=== PATIENT | male | born 1940 | race Caucasian/White ===

== ENCOUNTER 2017-06-21 16:29 | Inpatient (IN) | payer MEDICARE, OTHER ==
--- NOTE | 2017-06-21 16:35 | ED Physician Chart ---
ED Chief Complaint/HPI - Patient Information Date Seen:: 06/21/17 Time Seen:: 16:30 Chief Complaint:: Agitation History of Present Illness:: onset x one day of agitation, confusion, aggression, and combative behavior; no SIs, H/As, neck pain, C/P, SOB, Abd. pain, cough, A/N/V/D/c, fever, chills, or urinary s/s Allergies:: Allergies Allergy/AdvReac Type Severity Reaction Status Date / Time No Known Allergies Allergy Verified 05/03/16 15:51 Historian:: Patient, EMS Review:: Nurse's Note Reviewed, Old Chart Reviewed, EMS run form Reviewed, Transfer documents Reviewed ED Review of Systems - Review of Systems General/Constitutional: No fever, No chills, No weight loss, No weakness, No diaphoresis, No edema, No loss of appetite Skin: No skin lesions, No rash, No bruising Head: No headache, No light-headedness Eyes: No loss of vision, No pain, No diplopia ENT: No earache, No nasal drainage, No sore throat, No tinnitus Neck: No neck pain, No swelling, No thyromegaly, No stiffness, No mass noted Cardio Vascular: No chest pain, No palpitations, No PND, No orthopnea, No edema Pulmonary: No SOB, No cough, No sputum, No wheezing GI: No nausea, No vomiting, No diarrhea, No pain, No melena, No hematochezia, No constipation, No hematemesis G/U: No dysuria, No frequency, No hematuria Musculoskeletal: No bone or joint pain, No back pain, No muscle pain Endocrine: No polyuria, No polydipsia Psychiatric: Prior psych history, Depression, Anxiety, No suicidal ideation, No homicidal ideation, Auditory hallucination, No visual hallucination Hematopoietic: No bruising, No lymphadenopathy Allergic/Immuno: No urticaria, No angioedema Neurological: No syncope, No focal symptoms, No weakness, No paresthesia, No headache, No seizure, No dizziness, No confusion, No vertigo ED Past Medical History - Past Medical History Obtainable: Yes Past Medical History: HTN, DM, CAD, CVA/TIA, Seizures, Dementia Family History: Heart disease, Diabetes Melitus, HTN Social History: Non Smoker, No Alcohol, No Drug Use, Single, Care Facility Surgical History: None Psychiatricy History: Depression, Schizophrenia, Bipolar, Dementia Medication: Reviewed Family Medical History - Family Member family History Unknown: Yes Ethnicity: Unknown Living Status: Unknown Hx Family Cancer: (unknown) Hx Family Coronary Artery Disease: (unknown) Hx Family Congestive Heart Failure: (unknown) Hx Family Hypertension: (unknown) Hx Family Stroke: (unknown) Hx Family Diabetes: (unknown) Hx Family Seizures: (unknown) Hx Family Dementia: (unknown) Hx Family AIDS: (unknown) Hx Family COPD: (unknown) Hx Family Hepatitis: (unknown) Hx Family Psychiatric Problems: (unknown) Hx Family Tuberculosis: (unknown) ED Physical Exam - Physical Examination General/Constitutional: Awake, Well-developed, well-nourished, Alert, No distress, GCS 15, Non-toxic appearing, Ambulatory Head: Atraumatic Eyes: Lids, conjuctiva normal, PERRL, EOMI Skin: Nl inspection, No rash, No skin lesions, No ecchymosis, Well hydrated, No lymphadenopathy ENMT: External ears, nose nl, Nasal exam nl, Lips, teeth, gums nl Neck: Nontender, Full ROM w/o pain, No JVD, No nuchal rigidity, No bruit, No mass, No stridor Respiratory: Nl effort/Exclusion, Clear to Auscultation, No Wheeze/Rhonchi/Rales Cardio Vascular: RRR, No murmur, gallop, rubs, NL S1 S2 GI: No tenderness/rebounding/guarding, No organomegaly, No hernia, Normal BS's, Nondistended, No mass/bruits, No McBurney tenderness : No CVA tenderness Extremities: No tenderness or effusion, Full ROM, normal strength in all extremities, No edema, Normal digits & nails Neuro/Psych: DTR's symmetric, Normal sensory exam, Normal motor strength, Normal gait, No focal deficits Other Neuro/Psych comments:: + Psychomotor Agitation; Mood/Affect: Labile; Confused and Disoriented; no SIs Misc: Normal back, No paraspinal tenderness ED Labs/Radiology/EKG Results - Lab Results Comments:: unremarkable ED Septic Shock - . Is Septic Shock (SBP<90, OR Lactate>4 mmol\L) present?: No ED Reassessment (Disposition) - Reassessment Reassessment Condition:: Improved - Diagnosis Diagnosis:: Dx: Agitation; Manic-Depression; BiPolar Disorder - Aftercare/Follow up Instructions Aftercare/Follow-Up Instructions:: Counseled pt regarding lab results/diagnosis & need follow up, Counseled pt & family regarding lab results/diagnosis & need follow up - Patient Disposition Discharge/Transfer:: Acute Care w/in this hosp Admitted to:: [facility] Condition at Disposition:: Stable, Improved
[2017-06-21 17:05] LABS: % BASOPHILS 0.6 % (0.0-2.0); % LYMPHOCYTES 26.7 % (20.0-50.0); % NEUTROPHILS 59.7 % (40.0-80.0); HEMATOCRIT 41.7 % (41.0-60); MEAN CELL VOLUME 87.2 fl (80-99); MEAN CORPUSCULAR HEMOGLOBIN 29.2 pg (27.0-31.0); MEAN CORPUSCULAR HGB CONC 33.5 pg (28.0-36.0); RED BLOOD COUNT 4.78 Mil/cmm (3.80-5.80); RED CELL DISTRIBUTION WIDTH 13.4 % (11.5-20.0)
[2017-06-21 17:24] LABS: ACETAMINOPHEN < 10.0 ug/mL (10.0-30.0); ALB/GLOB RATIO 1.8 (1.0-1.8); ALKALINE PHOSPHATASE 119 U/L (34-104); ANION GAP 9.6 (7.0-16.0); BILIRUBIN,TOTAL 0.2 mg/dL (0.3-1.0); BUN - UREA NITROGEN 19 mg/dL (7-25); BUN/CREATININE RATIO 27.1; CARBON DIOXIDE 25.9 mEq/L (21.0-31.0); CHLORIDE 101 mEq/L (98-107); CHOLESTEROL 185 mg/dL (<200); CREATININE - SERUM 0.7 mg/dL (0.7-1.3); GLUCOSE 187 mg/dL (70-105); POTASSIUM SERUM 4.5 mEq/L (3.5-5.1); SGOT 12 U/L (13-39); SGPT/ALT 13 U/L (7-52); SODIUM SERUM 132 mEq/L (136-145); TRIGLYCERIDES 110 mg/dL (<150)
[2017-06-21 17:30] LABS: PLATELET COUNT 208 Th/cmm (150-400); WHITE BLOOD COUNT 8.6 Th/cmm (4.8-10.8)
[2017-06-21 19:28] LABS: URINE BILIRUBIN NEGATIVE (NEGATIVE); URINE BLOOD NEGATIVE (NEGATIVE); URINE GLUCOSE (UA) NEGATIVE (NEGATIVE); URINE KETONE NEGATIVE (NEGATIVE); URINE PROTEIN NEGATIVE (NEGATIVE); URINE UROBILINOGEN 0.2 E.U./dL (0.2 - 1.0)
[2017-06-21 19:36] LABS: AMPHETAMINE URINE NEGATIVE (NEGATIVE); BARBITURATES URINE POSITIVE (NEGATIVE); METHADONE URINE NEGATIVE (NEGATIVE)
[2017-06-21 19:55] LABS: URINE COLOR YELLOW
[2017-06-21 19:56] LABS: URINE BACTERIA NONE SEEN /hpf (NONE SEEN); URINE EPITHELIAL CELLS NONE SEEN /lpf (FEW); URINE RBC NONE SEEN /hpf (0-5); URINE WBC NONE SEEN /hpf (0-5)
[2017-06-21 22:07] VITALS: BP 125/66
--- NOTE | 2017-06-23 05:37 | Psychosocial Evaluation ---
DATE OF SERVICE: 06/21/2017 IDENTIFYING DATA: The patient is a 76-year-old male resident of [facility] in [place]. Information obtained by directly interviewing the patient as well as reviewing the admission papers ____ hospitalization: The patient is admitted because of his agitated and assaultive behavior. CHIEF COMPLAINT: "I cannot see. Something is going and poor." HISTORY OF PRESENT ILLNESS: This is one of multiple psychiatric hospitalizations for this patient who was under my care last year. The patient at this time is reported to have been getting easily agitated and the patient is not able to contract for safety and hence patient has to be admitted over here for stabilization. Prior to the hospitalization, the patient's sleep is noted to be poor. Appetite is also noted to very poor. The patient is stating that he has been having problem with his eye. The patient during the interview with a Slovak speaking child care supervisor has been responding actively to internal stimuli. Possibly having visual hallucinations. PAST PSYCHIATRIC HISTORY: Please refer to the above. MEDICAL HISTORY: Physical examination is requested to be done by Dr. Li. SUBSTANCE ABUSE HISTORY: None. PHYSICAL OR SEXUAL ABUSE HISTORY: None. LEGAL PROBLEMS: None at this time. MENTAL STATUS EXAMINATION: The patient is a 76-year-old, thin built, looking his stated age, superficially cooperative. Eye contact is poor. Mood is noted to be irritable. Affect is constricted. Insight and judgment at this time are noted to be still impaired. Impulse control seems to be poor. Coping skills are also poor. The patient has been having difficult time to cope with the stress. The patient is still actively responding to internal stimuli. The patient is frustrated at this time. DIAGNOSTIC IMPRESSION: 1. Psychosis, not otherwise specified. 2. Dementia and behavioral change, secondary ____. IMMEDIATE TREATMENT PLAN: The patient is going to be observed in inpatient unit, provided with supportive psychotherapy. The patient is going to be started on low dose of Seroquel and the patient is going to be closely monitored. ESTIMATED LENGTH OF STAY: 5-7 days. DISCHARGE CRITERIA: When he is no longer a threat to self or others and be able to cope up with the stress. JOB# [id number]
[2017-06-23] MEDS ORDERED: Maalox 30 mL Cup PO PRN (09:05)
--- NOTE | 2017-06-23 09:05 | History and Physical ---
History of Present Illness - HPI Chief Complaint: Increased in agitation HPI: Patient is a permanent resident of a SNF and became agitated. Vital Signs: Last Vital Signs Temp 98.3 F 06/23/17 06:51 Pulse 74 06/23/17 06:51 Resp 20 06/23/17 06:51 BP 110/69 06/23/17 06:51 Pulse Ox 97 06/23/17 06:51 Past Medical History Cardiovascular: Report: CAD, CHF, HTN Pulmonary: Report: No Pertinent Hx SOCIAL SCIENCES INSTRUCTOR: Report: CVA, Dementia GI: Report: No Pertinent Hx Psych: Report: Psychosis, Schizophrenia Musculoskeletal: Report: No Pertinent Hx Rheumatologic: Report: No pertinent Hx Infectious Disease: Report: No Pertinent Hx Renal/: Report: No Pertinent Hx Endocrine: Report: Diabetes Dermatology: Report: No Pertinent Hx - Past Surgical History Past Surgical History: No pertinent Hx Family Medical History - Family Member family History Unknown: Yes Ethnicity: Unknown Living Status: Unknown Hx Family Cancer: (unknown) Hx Family Coronary Artery Disease: (unknown) Hx Family Congestive Heart Failure: (unknown) Hx Family Hypertension: (unknown) Hx Family Stroke: (unknown) Hx Family Diabetes: (unknown) Hx Family Seizures: (unknown) Hx Family Dementia: (unknown) Hx Family AIDS: (unknown) Hx Family HIV: No Hx Family COPD: (unknown) Hx Family Hepatitis: (unknown) Hx Family Psychiatric Problems: (unknown) Hx Family Tuberculosis: (unknown) Social History Smoke: No Alcohol: None Drugs: None Lives: Retirement Domestic Violence: Negative - Medications Home Medications: Home Medication Medication Instructions Recorded Type Acetaminophen [Tylenol] 650 mg PO Q4HR PRN #0 tab 05/13/16 Rx Al Hyd/Mg Hyd/Simethicone [Maalox] 30 ml PO Q4HR PRN #0 udc 05/13/16 Rx Aspirin [Aspirin Chewable] 81 mg PO DAILY #0 ctb 05/13/16 Rx Benazepril [Lotensin] 20 mg PO DAILY #0 tab 05/13/16 Rx Cholecalciferol (Vit D3) [Vitamin 2,000 iu PO DAILY #0 tab 05/13/16 Rx D3] Docusate Sodium [Colace] 100 mg PO DAILY #0 cap 05/13/16 Rx Insulin Aspart Sliding Scale 0 units SUBQ ACHS #0 unit 05/13/16 Rx [NovoLOG INSULIN SLIDING SCALE] Multivitamin [Theragran] 1 tab PO DAILY #0 tab 05/13/16 Rx Phenytoin [Dilantin*] 300 mg PO HS #0 cer 05/13/16 Rx Tamsulosin [Flomax] 0.4 mg PO DAILY #0 cap 05/13/16 Rx metFORMIN [Glucophage] 500 mg PO TID 06/21/17 History - Allergies Allergies/Adverse Reactions: Allergies Allergy/AdvReac Type Severity Reaction Status Date / Time No Known Allergies Allergy Verified 05/03/16 15:51 Review of Systems - Review of Systems Constitutional: Report: No Significant Eyes: Report: No Significant ENT: Report: No Significant Respiratory: Report: No Significant Cardiovascular: Report: No Significant Gastrointestinal: Report: No Significant Genitourinary: Report: No Significant Musculoskeletal: Report: No Significant Skin: Report: No Significant Neurological: Report: Weakness Physical Exam - Physical Exam HEENT: Report: Ears Nose Throat within normal limits Neck: Report: Within normal limits Cardiovascular Systems: Report: Regular, Rate and Rhythm Respiratory: Report: Breath Sounds are within normal limits Abdomen: Report: Non-tender to palpation Back: Report: Inspection of back is within normal limits. Extremities: Report: Non-tender to palpation. Skin: Report: Color of skin is within normal limits Neuro/Psych: Report: Disoriented to name time or place - Lab Results All Lab Results last 24 hours: Laboratory Last Values WBC 8.6 Th/cmm (4.8-10.8) D 06/21/17 16:58 RBC 4.78 Mil/cmm (3.80-5.80) 06/21/17 16:58 Hgb 14.0 gm/dL (12-16) 06/21/17 16:58 Hct 41.7 % (41.0-60) 06/21/17 16:58 MCV 87.2 fl (80-99) 06/21/17 16:58 MCH 29.2 pg (27.0-31.0) 06/21/17 16:58 MCHC Differential 33.5 pg (28.0-36.0) 06/21/17 16:58 RDW 13.4 % (11.5-20.0) 06/21/17 16:58 Plt Count 208 Th/cmm (150-400) D 06/21/17 16:58 MPV 8.0 fl 06/21/17 16:58 Neutrophils % 59.7 % (40.0-80.0) 06/21/17 16:58 Lymphocytes % 26.7 % (20.0-50.0) 06/21/17 16:58 Monocytes % 10.0 % (2.0-10.0) 06/21/17 16:58 Eosinophils % 3.0 % (0.0-5.0) 06/21/17 16:58 Basophils % 0.6 % (0.0-2.0) 06/21/17 16:58 Sodium 132 mEq/L (136-145) L 06/21/17 16:58 Potassium 4.5 mEq/L (3.5-5.1) 06/21/17 16:58 Chloride 101 mEq/L (98-107) 06/21/17 16:58 Carbon Dioxide 25.9 mEq/L (21.0-31.0) 06/21/17 16:58 Anion Gap 9.6 (7.0-16.0) 06/21/17 16:58 BUN 19 mg/dL (7-25) 06/21/17 16:58 Creatinine 0.7 mg/dL (0.7-1.3) 06/21/17 16:58 Est GFR ( Amer) TNP 06/21/17 16:58 Est GFR (Non-Af Amer) TNP 06/21/17 16:58 BUN/Creatinine Ratio 27.1 06/21/17 16:58 Glucose 187 mg/dL (70-105) H 06/21/17 16:58 POC Glucose 90 MG/DL (70 - 105) 06/23/17 06:49 Hemoglobin A1c % 6.1 % (4.0-6.0) H 06/21/17 16:44 Calcium 9.0 mg/dL (8.6-10.3) 06/21/17 16:58 Total Bilirubin 0.2 mg/dL (0.3-1.0) L 06/21/17 16:58 AST 12 U/L (13-39) L 06/21/17 16:58 ALT 13 U/L (7-52) 06/21/17 16:58 Alkaline Phosphatase 119 U/L (34-104) H 06/21/17 16:58 Total Protein 5.9 gm/dL (6.0-8.3) L 06/21/17 16:58 Albumin 3.8 gm/dL (4.2-5.5) L 06/21/17 16:58 Globulin 2.1 gm/dL 06/21/17 16:58 Albumin/Globulin Ratio 1.8 (1.0-1.8) 06/21/17 16:58 Triglycerides 110 mg/dL (<150) 06/21/17 16:58 Cholesterol 185 mg/dL (<200) 06/21/17 16:58 LDL Cholesterol Direct 123 mg/dL (75-193) 06/21/17 16:58 HDL Cholesterol 48 mg/dL (23-92) 06/21/17 16:58 TSH 1.45 uIU/ml (0.34-5.60) 06/21/17 16:58 Urine Source CLEAN C 06/21/17 18:50 Urine Color YELLOW 06/21/17 18:50 Urine Clarity CLEAR (CLEAR) 06/21/17 18:50 Urine pH 6.0 (4.6 - 8.0) 06/21/17 18:50 Ur Specific [place] 1.010 (1.005-1.030) 06/21/17 18:50 Urine Protein NEGATIVE mg/dL (NEGATIVE) 06/21/17 18:50 Urine Glucose (UA) NEGATIVE mg/dL (NEGATIVE) 06/21/17 18:50 Urine Ketones NEGATIVE mg/dL (NEGATIVE) 06/21/17 18:50 Urine Blood NEGATIVE (NEGATIVE) 06/21/17 18:50 Urine Nitrate NEGATIVE (NEGATIVE) 06/21/17 18:50 Urine Bilirubin NEGATIVE (NEGATIVE) 06/21/17 18:50 Urine Urobilinogen 0.2 E.U./dL (0.2 - 1.0) 06/21/17 18:50 Ur Leukocyte Esterase NEGATIVE (NEGATIVE) 06/21/17 18:50 Urine RBC NONE SEEN /hpf (0-5) 06/21/17 18:50 Urine WBC NONE SEEN /hpf (0-5) 06/21/17 18:50 Ur Epithelial Cells NONE SEEN /lpf (FEW) 06/21/17 18:50 Urine Bacteria NONE SEEN /hpf (NONE SEEN) 06/21/17 18:50 Salicylates < 25.0 mg/L (30.0-100.0) L 06/21/17 16:58 Urine Opiates Screen NEGATIVE (NEGATIVE) 06/21/17 18:50 Urine Methadone Screen NEGATIVE (NEGATIVE) 06/21/17 18:50 Acetaminophen < 10.0 ug/mL (10.0-30.0) L 06/21/17 16:58 Ur Barbiturates Screen POSITIVE (NEGATIVE) H 06/21/17 18:50 Ur Tricyclics Screen NEGATIVE (NEGATIVE) 06/21/17 18:50 Ur Phencyclidine Scrn NEGATIVE (NEGATIVE) 06/21/17 18:50 Amphetamines Screen NEGATIVE (NEGATIVE) 06/21/17 18:50 U Methamphetamines Scrn NEGATIVE (NEGATIVE) 06/21/17 18:50 U Benzodiazepines Scrn NEGATIVE (NEGATIVE) 06/21/17 18:50 U Cocaine Metab Screen NEGATIVE (NEGATIVE) 06/21/17 18:50 U Cannabinoids Screen NEGATIVE (NEGATIVE) 06/21/17 18:50 Ethyl Alcohol < 10 mg/dL (0-10) 06/21/17 16:58 Laboratory Results - last 24 hr 06/22/17 06/23/17 20:24 06:49 POC Glucose 184 H 90 - Assessment Assessment: Patient is awake, calm in no acute distress. DX: Increased in agitation, Dementia, Schizophrenia, DM, HTN, CAD, Seizure disorder - Plan Plan: Patient is continue with SNF medications. He is under Psychiatric care.
[2017-06-23] MEDS: Aspirin 81mg Chewable Tab PO SCH (09:22)
[2017-06-23] MEDS: INSULIN ASPART SLIDING SCALE 100 UNITS/ML UNIT SUBQ SCH ×3 (11:46→20:53)
[2017-06-24] MEDS: INSULIN ASPART SLIDING SCALE 100 UNITS/ML UNIT SUBQ SCH ×4 (06:51→22:07)
[2017-06-24] MEDS: Aspirin 81mg Chewable Tab PO SCH (08:40)
[2017-06-24] MEDS: Multivitamin Tab PO SCH (08:41)
--- NOTE | 2017-06-24 10:16 | General Progress Note ---
Subjective - Review of Systems Service Date: 06/24/17 Subjective: I am fine Objective - Results Result Diagrams: 06/21/17 16:58 06/21/17 16:58 Recent Labs: Laboratory Last Values WBC 8.6 Th/cmm (4.8-10.8) D 06/21/17 16:58 RBC 4.78 Mil/cmm (3.80-5.80) 06/21/17 16:58 Hgb 14.0 gm/dL (12-16) 06/21/17 16:58 Hct 41.7 % (41.0-60) 06/21/17 16:58 MCV 87.2 fl (80-99) 06/21/17 16:58 MCH 29.2 pg (27.0-31.0) 06/21/17 16:58 MCHC Differential 33.5 pg (28.0-36.0) 06/21/17 16:58 RDW 13.4 % (11.5-20.0) 06/21/17 16:58 Plt Count 208 Th/cmm (150-400) D 06/21/17 16:58 MPV 8.0 fl 06/21/17 16:58 Neutrophils % 59.7 % (40.0-80.0) 06/21/17 16:58 Lymphocytes % 26.7 % (20.0-50.0) 06/21/17 16:58 Monocytes % 10.0 % (2.0-10.0) 06/21/17 16:58 Eosinophils % 3.0 % (0.0-5.0) 06/21/17 16:58 Basophils % 0.6 % (0.0-2.0) 06/21/17 16:58 Sodium 132 mEq/L (136-145) L 06/21/17 16:58 Potassium 4.5 mEq/L (3.5-5.1) 06/21/17 16:58 Chloride 101 mEq/L (98-107) 06/21/17 16:58 Carbon Dioxide 25.9 mEq/L (21.0-31.0) 06/21/17 16:58 Anion Gap 9.6 (7.0-16.0) 06/21/17 16:58 BUN 19 mg/dL (7-25) 06/21/17 16:58 Creatinine 0.7 mg/dL (0.7-1.3) 06/21/17 16:58 Est GFR ( Amer) TNP 06/21/17 16:58 Est GFR (Non-Af Amer) TNP 06/21/17 16:58 BUN/Creatinine Ratio 27.1 06/21/17 16:58 Glucose 187 mg/dL (70-105) H 06/21/17 16:58 POC Glucose 85 MG/DL (70 - 105) 06/24/17 06:48 Hemoglobin A1c % 6.1 % (4.0-6.0) H 06/21/17 16:44 Calcium 9.0 mg/dL (8.6-10.3) 06/21/17 16:58 Total Bilirubin 0.2 mg/dL (0.3-1.0) L 06/21/17 16:58 AST 12 U/L (13-39) L 06/21/17 16:58 ALT 13 U/L (7-52) 06/21/17 16:58 Alkaline Phosphatase 119 U/L (34-104) H 06/21/17 16:58 Total Protein 5.9 gm/dL (6.0-8.3) L 06/21/17 16:58 Albumin 3.8 gm/dL (4.2-5.5) L 06/21/17 16:58 Globulin 2.1 gm/dL 06/21/17 16:58 Albumin/Globulin Ratio 1.8 (1.0-1.8) 06/21/17 16:58 Triglycerides 110 mg/dL (<150) 06/21/17 16:58 Cholesterol 185 mg/dL (<200) 06/21/17 16:58 LDL Cholesterol Direct 123 mg/dL (75-193) 06/21/17 16:58 HDL Cholesterol 48 mg/dL (23-92) 06/21/17 16:58 TSH 1.45 uIU/ml (0.34-5.60) 06/21/17 16:58 Urine Source CLEAN C 06/21/17 18:50 Urine Color YELLOW 06/21/17 18:50 Urine Clarity CLEAR (CLEAR) 06/21/17 18:50 Urine pH 6.0 (4.6 - 8.0) 06/21/17 18:50 Ur Specific [place] 1.010 (1.005-1.030) 06/21/17 18:50 Urine Protein NEGATIVE mg/dL (NEGATIVE) 06/21/17 18:50 Urine Glucose (UA) NEGATIVE mg/dL (NEGATIVE) 06/21/17 18:50 Urine Ketones NEGATIVE mg/dL (NEGATIVE) 06/21/17 18:50 Urine Blood NEGATIVE (NEGATIVE) 06/21/17 18:50 Urine Nitrate NEGATIVE (NEGATIVE) 06/21/17 18:50 Urine Bilirubin NEGATIVE (NEGATIVE) 06/21/17 18:50 Urine Urobilinogen 0.2 E.U./dL (0.2 - 1.0) 06/21/17 18:50 Ur Leukocyte Esterase NEGATIVE (NEGATIVE) 06/21/17 18:50 Urine RBC NONE SEEN /hpf (0-5) 06/21/17 18:50 Urine WBC NONE SEEN /hpf (0-5) 06/21/17 18:50 Ur Epithelial Cells NONE SEEN /lpf (FEW) 06/21/17 18:50 Urine Bacteria NONE SEEN /hpf (NONE SEEN) 06/21/17 18:50 Salicylates < 25.0 mg/L (30.0-100.0) L 06/21/17 16:58 Urine Opiates Screen NEGATIVE (NEGATIVE) 06/21/17 18:50 Urine Methadone Screen NEGATIVE (NEGATIVE) 06/21/17 18:50 Acetaminophen < 10.0 ug/mL (10.0-30.0) L 06/21/17 16:58 Ur Barbiturates Screen POSITIVE (NEGATIVE) H 06/21/17 18:50 Ur Tricyclics Screen NEGATIVE (NEGATIVE) 06/21/17 18:50 Ur Phencyclidine Scrn NEGATIVE (NEGATIVE) 06/21/17 18:50 Amphetamines Screen NEGATIVE (NEGATIVE) 06/21/17 18:50 U Methamphetamines Scrn NEGATIVE (NEGATIVE) 06/21/17 18:50 U Benzodiazepines Scrn NEGATIVE (NEGATIVE) 06/21/17 18:50 U Cocaine Metab Screen NEGATIVE (NEGATIVE) 06/21/17 18:50 U Cannabinoids Screen NEGATIVE (NEGATIVE) 06/21/17 18:50 Ethyl Alcohol < 10 mg/dL (0-10) 06/21/17 16:58 RPR NONREACTIVE (NONREACTIVE) 06/21/17 16:58 - Physical Exam Vitals and I&O: Vital Signs Temp 98.2 F 06/24/17 06:38 Pulse 74 06/24/17 08:40 Resp 20 06/24/17 06:38 BP 127/76 06/24/17 08:40 Pulse Ox 98 06/24/17 06:38 Intake & Output 06/23/17 06/24/17 06/24/17 18:59 06:59 18:59 Intake Total 1000 120 Balance 1000 120 Intake: Oral 1000 120 Other: # Voids 4 3 # Bowel Movements 1 Active Medications: Current Medications Acetaminophen (Tylenol) 650 mg PO Q4HR PRN PRN Reason: Pain Stop: 08/22/17 09:04 Al Hydrox/Mg Hydrox/Simethicone (Maalox) 30 ml PO Q4HR PRN PRN Reason: GI DISTRESS Stop: 08/22/17 09:04 Aspirin (Aspirin Chewable) 81 mg PO DAILY GIOVANNA Stop: 08/22/17 08:59 Last Admin: 06/24/17 08:40 Dose: 81 mg Benazepril HCl (Lotensin) 20 mg PO DAILY GIOVANNA Stop: 08/22/17 08:59 Last Admin: 06/24/17 08:40 Dose: 20 mg Cholecalciferol (Vitamin D3) 2,000 iu PO DAILY GIOVANNA Stop: 08/23/17 08:59 Last Admin: 06/24/17 08:40 Dose: 2,000 iu Docusate Sodium (Colace) 100 mg PO DAILY GIOVANNA Stop: 08/22/17 08:59 Last Admin: 06/24/17 08:41 Dose: 100 mg Insulin Aspart (Novolog Insulin Sliding Scale) 0 units SUBQ ACHS GIOVANNA PRN Reason: Protocol Stop: 08/22/17 11:29 Last Admin: 06/24/17 06:51 Dose: Not Given Metformin HCl (Glucophage) 500 mg PO TID GIOVANNA Stop: 08/21/17 13:59 Last Admin: 06/24/17 08:44 Dose: Not Given Multivitamins/Vitamin C (Theragran) 1 tab PO DAILY GIOVANNA Stop: 08/23/17 08:59 Last Admin: 06/24/17 08:41 Dose: 1 tab Phenytoin (Dilantin) 300 mg PO HS GIOVANNA Stop: 08/22/17 20:59 Last Admin: 06/23/17 21:01 Dose: 300 mg Quetiapine Fumarate (Seroquel) 12.5 mg PO HS [facility] PRN Reason: Protocol Stop: 08/21/17 20:59 Last Admin: 06/23/17 21:02 Dose: 12.5 mg Tamsulosin HCl (Flomax) 0.4 mg PO DAILY [facility] Stop: 08/22/17 09:14 Last Admin: 06/24/17 08:41 Dose: 0.4 mg General: Alert, Cooperative, Other (Confused) HEENT: Atraumatic Neck: Supple Cardiovascular: Regular rate Lungs: Clear to auscultation Abdomen: Bowel sounds Extremities: Other (No edema) Neurological: Other (Unstable gait) Skin: Other (Warm and dry) Psych/Mental Status: Other (Awake, alert, confused) - Procedures Procedures: Procedures Procedure Code Date OTHER GROUP THERAPY 94.44 05/02/11 RECREATIONAL THERAPY 93.81 05/02/11 Assessment/Plan - Assessment Assessment: Patient is awake, calm in no acute distress. DX: Increased in agitation, Dementia, Schizophrenia, DM, HTN, CAD, Seizure disorder. - Plan Plan: Patient is continue with SNF medications. He is under Psychiatric care. Nutritional Asmnt/Malnutr-PDOC - Dietary Evaluation Malnutrition Findings (Please click <Entered> for more info): Nutritional Asmnt/Malnutrition Start: 06/22/17 16: 44 Text: Status: Complete Freq: Document 06/22/17 16:44 GSUN (Rec: 06/22/17 17:04 [id number] [id number]) Nutritional Asmnt/Malnutrition Patient General Information Nutritional Screening Consult Diagnosis Reason for visit: psychosis NOS Pertinent Medical Hx/Surgical Hx ER report: HTN, DM, CAD, CVA/ TIA, seizures, dementia, depression, schizophrenia, bipolar Subjective Information [address] consult for poor PO intake. Visited pt during meal time, pt seen in chair in rec room, had already finished dinner. Per RN notes , pt finished 100% dinner . Spoke to SHUTTLELESS LOOM WEAVER, SHUTTLE[employer]ESS LO[employer] WEAVER stated pt with good appetite, unaware of sign of poor PO intake. PT is edentulous, tolerating current diet texture. Pt was pleasant, denied nutritinoal concerns, well dressed, stated food is good. No muscle fat wasting noted. Pt does appeared 147lb, however does not appear less than 5ft at BMI 34/obese. Current Diet Order/ Nutrition Support [id number] Pertinent Medications Colace, Glucophage, Seroquel Pertinent Labs 06/21: A1c 6.1H, glucose 187H Nutritional Hx/Data Height 1.4 m Height (Calculated Centimeters) 139.7 Current Weight (lbs) 66.678 kg Weight (Calculated Kilograms) 66.7 Weight (Calculated Grams) 05785.1 GI Symptoms Food Allergies No Skin Integrity/Comment: Richar 21. Skin intact. Current %PO Good (75-100%) Estimated Nutritional Goals BEE in Kcals: Using Current wt Calories/Kcals/Kg CBW 147lb/66.8kg Kcals Calculated 1670-2004kcal (25-30kcal/kg) Protein: Using Current wt Protein Calculated 67g (1g/kg) Fluid: ml 1670-2004ml (1ml/kcal) Nutritional Problem 1. Problem Problem Altered nutrition related laboratory values related to Etiology DM aeb Signs/Symptoms: A1c 6.1H, glucose 187H on adm Intervention/Recommendation Comments 1. Continue with current diet order. Avg PO intake is adequate. Pt is edentulous, monitor tolerance to diet texture. 2. Monitor PO intake. RD receieved consult for poor PO intake. However, pt RN notes and SHUTTLELESS LOOM WEAVER verbal report, pt has been eating 100% of meals, meeting nutritnioal needs. No difficulties noted. 3. Monitor weight/height. Pt does not appear 4ft 7in at BMI 34/obese status. Expected Outcomes/Goals Expected Outcomes/Goals 1. PO intake to meet at least 75% of estimated nutritinoal needs.
--- NOTE | 2017-06-24 15:09 | Progress Notes ---
DATE: 06/23/2017 SUBJECTIVE: Staff was spoken to. The patient is interviewed. Mood is noted to be irritable. Affect is constricted. The patient is going on a tangent. The patient's coping skills are noted to be very poor. Continues to be paranoid and is responding to internal stimuli. The patient is still not able to contract for safety. No side effects to medications are noted. The patient has been placed on the Seroquel 12.5 mg at bedtime and has been able to tolerate the medication. PLAN: To continue the patient with the supportive therapy and followup. JOB# [id number]
--- NOTE | 2017-06-25 01:19 | Progress Notes ---
DATE: 06/24/2017 SUBJECTIVE: Staff was spoken to. The patient is interviewed. Mood is noted to be irritable. Affect is constricted. The patient has been still confused and pacing on the unit. Insight and judgment at this time are noted to be still impaired. Impulse control seems to be still poor. PLAN: The patient needs to be redirected. The patient is on a low dose of the Seroquel and the patient is going to be closely monitored at this time. JOB# [id number]
[2017-06-25] MEDS: INSULIN ASPART SLIDING SCALE 100 UNITS/ML UNIT SUBQ SCH ×4 (06:30→20:58)
[2017-06-25] MEDS: Aspirin 81mg Chewable Tab PO SCH (08:29)
[2017-06-25] MEDS: Multivitamin Tab PO SCH (08:30)
[2017-06-26] MEDS: INSULIN ASPART SLIDING SCALE 100 UNITS/ML UNIT SUBQ SCH ×5 (06:32→21:58)
[2017-06-26] MEDS: Multivitamin Tab PO SCH (09:09)
[2017-06-26] MEDS: Aspirin 81mg Chewable Tab PO SCH (09:09)
--- NOTE | 2017-06-26 09:14 | General Progress Note ---
Subjective - Review of Systems Service Date: 06/26/17 Subjective: I am fine Objective - Results Result Diagrams: 06/21/17 16:58 06/21/17 16:58 Recent Labs: Laboratory Last Values WBC 8.6 Th/cmm (4.8-10.8) D 06/21/17 16:58 RBC 4.78 Mil/cmm (3.80-5.80) 06/21/17 16:58 Hgb 14.0 gm/dL (12-16) 06/21/17 16:58 Hct 41.7 % (41.0-60) 06/21/17 16:58 MCV 87.2 fl (80-99) 06/21/17 16:58 MCH 29.2 pg (27.0-31.0) 06/21/17 16:58 MCHC Differential 33.5 pg (28.0-36.0) 06/21/17 16:58 RDW 13.4 % (11.5-20.0) 06/21/17 16:58 Plt Count 208 Th/cmm (150-400) D 06/21/17 16:58 MPV 8.0 fl 06/21/17 16:58 Neutrophils % 59.7 % (40.0-80.0) 06/21/17 16:58 Lymphocytes % 26.7 % (20.0-50.0) 06/21/17 16:58 Monocytes % 10.0 % (2.0-10.0) 06/21/17 16:58 Eosinophils % 3.0 % (0.0-5.0) 06/21/17 16:58 Basophils % 0.6 % (0.0-2.0) 06/21/17 16:58 Sodium 132 mEq/L (136-145) L 06/21/17 16:58 Potassium 4.5 mEq/L (3.5-5.1) 06/21/17 16:58 Chloride 101 mEq/L (98-107) 06/21/17 16:58 Carbon Dioxide 25.9 mEq/L (21.0-31.0) 06/21/17 16:58 Anion Gap 9.6 (7.0-16.0) 06/21/17 16:58 BUN 19 mg/dL (7-25) 06/21/17 16:58 Creatinine 0.7 mg/dL (0.7-1.3) 06/21/17 16:58 Est GFR ( Amer) TNP 06/21/17 16:58 Est GFR (Non-Af Amer) TNP 06/21/17 16:58 BUN/Creatinine Ratio 27.1 06/21/17 16:58 Glucose 187 mg/dL (70-105) H 06/21/17 16:58 POC Glucose 118 MG/DL (70 - 105) H 06/25/17 11:20 Hemoglobin A1c % 6.1 % (4.0-6.0) H 06/21/17 16:44 Calcium 9.0 mg/dL (8.6-10.3) 06/21/17 16:58 Total Bilirubin 0.2 mg/dL (0.3-1.0) L 06/21/17 16:58 AST 12 U/L (13-39) L 06/21/17 16:58 ALT 13 U/L (7-52) 06/21/17 16:58 Alkaline Phosphatase 119 U/L (34-104) H 06/21/17 16:58 Total Protein 5.9 gm/dL (6.0-8.3) L 06/21/17 16:58 Albumin 3.8 gm/dL (4.2-5.5) L 06/21/17 16:58 Globulin 2.1 gm/dL 06/21/17 16:58 Albumin/Globulin Ratio 1.8 (1.0-1.8) 06/21/17 16:58 Triglycerides 110 mg/dL (<150) 06/21/17 16:58 Cholesterol 185 mg/dL (<200) 06/21/17 16:58 LDL Cholesterol Direct 123 mg/dL (75-193) 06/21/17 16:58 HDL Cholesterol 48 mg/dL (23-92) 06/21/17 16:58 TSH 1.45 uIU/ml (0.34-5.60) 06/21/17 16:58 Urine Source CLEAN C 06/21/17 18:50 Urine Color YELLOW 06/21/17 18:50 Urine Clarity CLEAR (CLEAR) 06/21/17 18:50 Urine pH 6.0 (4.6 - 8.0) 06/21/17 18:50 Ur Specific [place] 1.010 (1.005-1.030) 06/21/17 18:50 Urine Protein NEGATIVE mg/dL (NEGATIVE) 06/21/17 18:50 Urine Glucose (UA) NEGATIVE mg/dL (NEGATIVE) 06/21/17 18:50 Urine Ketones NEGATIVE mg/dL (NEGATIVE) 06/21/17 18:50 Urine Blood NEGATIVE (NEGATIVE) 06/21/17 18:50 Urine Nitrate NEGATIVE (NEGATIVE) 06/21/17 18:50 Urine Bilirubin NEGATIVE (NEGATIVE) 06/21/17 18:50 Urine Urobilinogen 0.2 E.U./dL (0.2 - 1.0) 06/21/17 18:50 Ur Leukocyte Esterase NEGATIVE (NEGATIVE) 06/21/17 18:50 Urine RBC NONE SEEN /hpf (0-5) 06/21/17 18:50 Urine WBC NONE SEEN /hpf (0-5) 06/21/17 18:50 Ur Epithelial Cells NONE SEEN /lpf (FEW) 06/21/17 18:50 Urine Bacteria NONE SEEN /hpf (NONE SEEN) 06/21/17 18:50 Salicylates < 25.0 mg/L (30.0-100.0) L 06/21/17 16:58 Urine Opiates Screen NEGATIVE (NEGATIVE) 06/21/17 18:50 Urine Methadone Screen NEGATIVE (NEGATIVE) 06/21/17 18:50 Acetaminophen < 10.0 ug/mL (10.0-30.0) L 06/21/17 16:58 Ur Barbiturates Screen POSITIVE (NEGATIVE) H 06/21/17 18:50 Ur Tricyclics Screen NEGATIVE (NEGATIVE) 06/21/17 18:50 Ur Phencyclidine Scrn NEGATIVE (NEGATIVE) 06/21/17 18:50 Amphetamines Screen NEGATIVE (NEGATIVE) 06/21/17 18:50 U Methamphetamines Scrn NEGATIVE (NEGATIVE) 06/21/17 18:50 U Benzodiazepines Scrn NEGATIVE (NEGATIVE) 06/21/17 18:50 U Cocaine Metab Screen NEGATIVE (NEGATIVE) 06/21/17 18:50 U Cannabinoids Screen NEGATIVE (NEGATIVE) 06/21/17 18:50 Ethyl Alcohol < 10 mg/dL (0-10) 06/21/17 16:58 RPR NONREACTIVE (NONREACTIVE) 06/21/17 16:58 - Physical Exam Vitals and I&O: Vital Signs Temp 97.9 F 06/26/17 06:36 Pulse 76 06/26/17 09:09 Resp 18 06/26/17 06:36 BP 110/65 06/26/17 09:09 Pulse Ox 98 06/26/17 06:36 Intake & Output 06/25/17 06/26/17 06/26/17 18:59 06:59 18:59 Intake Total 950 240 Balance 950 240 Intake: Oral 950 240 Other: # Voids 4 3 # Bowel Movements 1 0 Active Medications: Current Medications Acetaminophen (Tylenol) 650 mg PO Q4HR PRN PRN Reason: Pain Stop: 08/22/17 09:04 Al Hydrox/Mg Hydrox/Simethicone (Maalox) 30 ml PO Q4HR PRN PRN Reason: GI DISTRESS Stop: 08/22/17 09:04 Aspirin (Aspirin Chewable) 81 mg PO DAILY GIOVANNA Stop: 08/22/17 08:59 Last Admin: 06/26/17 09:09 Dose: 81 mg Benazepril HCl (Lotensin) 20 mg PO DAILY GIOVANNA Stop: 08/22/17 08:59 Last Admin: 06/26/17 09:09 Dose: 20 mg Cholecalciferol (Vitamin D3) 2,000 iu PO DAILY GIOVANNA Stop: 08/23/17 08:59 Last Admin: 06/26/17 09:09 Dose: 2,000 iu Docusate Sodium (Colace) 100 mg PO DAILY GIOVANNA Stop: 08/22/17 08:59 Last Admin: 06/26/17 09:09 Dose: 100 mg Insulin Aspart (Novolog Insulin Sliding Scale) 0 units SUBQ ACHS GIOVANNA PRN Reason: Protocol Stop: 08/22/17 11:29 Last Admin: 06/26/17 06:32 Dose: Not Given Metformin HCl (Glucophage) 500 mg PO TID GIOVANNA Stop: 08/21/17 13:59 Last Admin: 06/26/17 09:09 Dose: 500 mg Multivitamins/Vitamin C (Theragran) 1 tab PO DAILY GIOVANNA Stop: 08/23/17 08:59 Last Admin: 06/26/17 09:09 Dose: 1 tab Phenytoin (Dilantin) 300 mg PO HS GIOVANNA Stop: 08/22/17 20:59 Last Admin: 06/25/17 20:34 Dose: 300 mg Quetiapine Fumarate (Seroquel) 12.5 mg PO HS GIOVANNA PRN Reason: Protocol Stop: 08/21/17 20:59 Last Admin: 06/25/17 20:59 Dose: 12.5 mg Quetiapine Fumarate (Seroquel) 12.5 mg PO HS GIOVANNA PRN Reason: Protocol Stop: 08/24/17 20:59 Last Admin: 06/25/17 20:59 Dose: 12.5 mg Tamsulosin HCl (Flomax) 0.4 mg PO DAILY [facility] Stop: 08/22/17 09:14 Last Admin: 06/26/17 09:09 Dose: 0.4 mg General: Alert, Cooperative, Other (Confused) HEENT: Atraumatic Neck: Supple Cardiovascular: Regular rate Lungs: Clear to auscultation Abdomen: Bowel sounds Extremities: Other (No edema) Neurological: Other (Unstable gait) Skin: Other (Warm and dry) Psych/Mental Status: Other (Awake, alert, confused) - Procedures Procedures: Procedures Procedure Code Date OTHER GROUP THERAPY 94.44 05/02/11 RECREATIONAL THERAPY 93.81 05/02/11 Assessment/Plan - Assessment Assessment: Patient is awake, calm in no acute distress. DX: Increased in agitation, Dementia, Schizophrenia, DM, HTN, CAD, Seizure disorder. - Plan Plan: Patient is continue with SNF medications. He is under Psychiatric care. Nutritional Asmnt/Malnutr-PDOC - Dietary Evaluation Malnutrition Findings (Please click <Entered> for more info): Nutritional Asmnt/Malnutrition Start: 06/22/17 16: 44 Text: Status: Complete Freq: Document 06/22/17 16:44 GSUN (Rec: 06/22/17 17:04 [email or web address]) Nutritional Asmnt/Malnutrition Patient General Information Nutritional Screening Consult Diagnosis Reason for visit: psychosis NOS Pertinent Medical Hx/Surgical Hx ER report: HTN, DM, CAD, CVA/ TIA, seizures, dementia, depression, schizophrenia, bipolar Subjective Information [address] consult for poor PO intake. Visited pt during meal time, pt seen in chair in rec room, had already finished dinner. Per RN notes , pt finished 100% dinner . Spoke to DIRECTOR OF RELIGIOUS LIFE, DIRECTOR OF RELIGIOUS LIFE stated pt with good appetite, unaware of sign of poor PO intake. PT is edentulous, tolerating current diet texture. Pt was pleasant, denied nutritinoal concerns, well dressed, stated food is good. No muscle fat wasting noted. Pt does appeared 147lb, however does not appear less than 5ft at BMI 34/obese. Current Diet Order/ Nutrition Support [id number] Pertinent Medications Colace, Glucophage, Seroquel Pertinent Labs 06/21: A1c 6.1H, glucose 187H Nutritional Hx/Data Height 1.4 m Height (Calculated Centimeters) 139.7 Current Weight (lbs) 66.678 kg Weight (Calculated Kilograms) 66.7 Weight (Calculated Grams) 06145.1 GI Symptoms Food Allergies No Skin Integrity/Comment: Richar 21. Skin intact. Current %PO Good (75-100%) Estimated Nutritional Goals BEE in Kcals: Using Current wt Calories/Kcals/Kg CBW 147lb/66.8kg Kcals Calculated 1670-2004kcal (25-30kcal/kg) Protein: Using Current wt Protein Calculated 67g (1g/kg) Fluid: ml 1670-2004ml (1ml/kcal) Nutritional Problem 1. Problem Problem Altered nutrition related laboratory values related to Etiology DM aeb Signs/Symptoms: A1c 6.1H, glucose 187H on adm Intervention/Recommendation Comments 1. Continue with current diet order. Avg PO intake is adequate. Pt is edentulous, monitor tolerance to diet texture. 2. Monitor PO intake. RD receieved consult for poor PO intake. However, pt RN notes and DIRECTOR OF RELIGIOUS LIFE verbal report, pt has been eating 100% of meals, meeting nutritnioal needs. No difficulties noted. 3. Monitor weight/height. Pt does not appear 4ft 7in at BMI 34/obese status. Expected Outcomes/Goals Expected Outcomes/Goals 1. PO intake to meet at least 75% of estimated nutritinoal needs.
--- NOTE | 2017-06-26 11:17 | Progress Notes ---
DATE: 06/25/2017 SUBJECTIVE: Staff was spoken to. The patient is interviewed. Mood is noted to be irritable. Affect is constricted. The patient has paranoid delusions. Insight and judgment are noted to be still impaired. The patient is wandering on the unit. No side effects to the medications are noted. The patient's coping skills are noted to be very poor today. ASSESSMENT: The patient is displaying paranoia. PLAN: To continue the patient with the supportive therapy. I encouraged the patient to verbalize the concerns rather than to act out. The patient is not ready to be discharged to a lower level of care in view of his impulsivity and paranoia. Plan to closely monitor the patient and then encouraged the patient to verbalize the concerns. JOB# [id number]
[2017-06-27] MEDS: INSULIN ASPART SLIDING SCALE 100 UNITS/ML UNIT SUBQ SCH ×3 (06:38→21:04)
--- NOTE | 2017-06-27 07:12 | Progress Notes ---
DATE: 06/26/2017 SUBJECTIVE: Staff was spoken to. The patient is interviewed. Mood is noted to be irritable. Affect is constricted. The patient has been getting easily frustrated. The patient needs to be redirected. No side effects to the medications are noted. ASSESSMENT: The patient is still impulsive. PLAN: To continue the patient with the supportive therapy and continue the Seroquel and follow him up and the patient needs to be closely monitored for any falls. JOB# [id number]
--- NOTE | 2017-06-27 09:03 | General Progress Note ---
Subjective - Review of Systems Service Date: 06/27/17 Subjective: I am fine Objective - Results Result Diagrams: 06/21/17 16:58 06/21/17 16:58 Recent Labs: Laboratory Last Values WBC 8.6 Th/cmm (4.8-10.8) D 06/21/17 16:58 RBC 4.78 Mil/cmm (3.80-5.80) 06/21/17 16:58 Hgb 14.0 gm/dL (12-16) 06/21/17 16:58 Hct 41.7 % (41.0-60) 06/21/17 16:58 MCV 87.2 fl (80-99) 06/21/17 16:58 MCH 29.2 pg (27.0-31.0) 06/21/17 16:58 MCHC Differential 33.5 pg (28.0-36.0) 06/21/17 16:58 RDW 13.4 % (11.5-20.0) 06/21/17 16:58 Plt Count 208 Th/cmm (150-400) D 06/21/17 16:58 MPV 8.0 fl 06/21/17 16:58 Neutrophils % 59.7 % (40.0-80.0) 06/21/17 16:58 Lymphocytes % 26.7 % (20.0-50.0) 06/21/17 16:58 Monocytes % 10.0 % (2.0-10.0) 06/21/17 16:58 Eosinophils % 3.0 % (0.0-5.0) 06/21/17 16:58 Basophils % 0.6 % (0.0-2.0) 06/21/17 16:58 Sodium 132 mEq/L (136-145) L 06/21/17 16:58 Potassium 4.5 mEq/L (3.5-5.1) 06/21/17 16:58 Chloride 101 mEq/L (98-107) 06/21/17 16:58 Carbon Dioxide 25.9 mEq/L (21.0-31.0) 06/21/17 16:58 Anion Gap 9.6 (7.0-16.0) 06/21/17 16:58 BUN 19 mg/dL (7-25) 06/21/17 16:58 Creatinine 0.7 mg/dL (0.7-1.3) 06/21/17 16:58 Est GFR ( Amer) TNP 06/21/17 16:58 Est GFR (Non-Af Amer) TNP 06/21/17 16:58 BUN/Creatinine Ratio 27.1 06/21/17 16:58 Glucose 187 mg/dL (70-105) H 06/21/17 16:58 POC Glucose 80 MG/DL (70 - 105) 06/27/17 05:58 Hemoglobin A1c % 6.1 % (4.0-6.0) H 06/21/17 16:44 Calcium 9.0 mg/dL (8.6-10.3) 06/21/17 16:58 Total Bilirubin 0.2 mg/dL (0.3-1.0) L 06/21/17 16:58 AST 12 U/L (13-39) L 06/21/17 16:58 ALT 13 U/L (7-52) 06/21/17 16:58 Alkaline Phosphatase 119 U/L (34-104) H 06/21/17 16:58 Total Protein 5.9 gm/dL (6.0-8.3) L 06/21/17 16:58 Albumin 3.8 gm/dL (4.2-5.5) L 06/21/17 16:58 Globulin 2.1 gm/dL 06/21/17 16:58 Albumin/Globulin Ratio 1.8 (1.0-1.8) 06/21/17 16:58 Triglycerides 110 mg/dL (<150) 06/21/17 16:58 Cholesterol 185 mg/dL (<200) 06/21/17 16:58 LDL Cholesterol Direct 123 mg/dL (75-193) 06/21/17 16:58 HDL Cholesterol 48 mg/dL (23-92) 06/21/17 16:58 TSH 1.45 uIU/ml (0.34-5.60) 06/21/17 16:58 Urine Source CLEAN C 06/21/17 18:50 Urine Color YELLOW 06/21/17 18:50 Urine Clarity CLEAR (CLEAR) 06/21/17 18:50 Urine pH 6.0 (4.6 - 8.0) 06/21/17 18:50 Ur Specific [place] 1.010 (1.005-1.030) 06/21/17 18:50 Urine Protein NEGATIVE mg/dL (NEGATIVE) 06/21/17 18:50 Urine Glucose (UA) NEGATIVE mg/dL (NEGATIVE) 06/21/17 18:50 Urine Ketones NEGATIVE mg/dL (NEGATIVE) 06/21/17 18:50 Urine Blood NEGATIVE (NEGATIVE) 06/21/17 18:50 Urine Nitrate NEGATIVE (NEGATIVE) 06/21/17 18:50 Urine Bilirubin NEGATIVE (NEGATIVE) 06/21/17 18:50 Urine Urobilinogen 0.2 E.U./dL (0.2 - 1.0) 06/21/17 18:50 Ur Leukocyte Esterase NEGATIVE (NEGATIVE) 06/21/17 18:50 Urine RBC NONE SEEN /hpf (0-5) 06/21/17 18:50 Urine WBC NONE SEEN /hpf (0-5) 06/21/17 18:50 Ur Epithelial Cells NONE SEEN /lpf (FEW) 06/21/17 18:50 Urine Bacteria NONE SEEN /hpf (NONE SEEN) 06/21/17 18:50 Salicylates < 25.0 mg/L (30.0-100.0) L 06/21/17 16:58 Urine Opiates Screen NEGATIVE (NEGATIVE) 06/21/17 18:50 Urine Methadone Screen NEGATIVE (NEGATIVE) 06/21/17 18:50 Acetaminophen < 10.0 ug/mL (10.0-30.0) L 06/21/17 16:58 Ur Barbiturates Screen POSITIVE (NEGATIVE) H 06/21/17 18:50 Ur Tricyclics Screen NEGATIVE (NEGATIVE) 06/21/17 18:50 Ur Phencyclidine Scrn NEGATIVE (NEGATIVE) 06/21/17 18:50 Amphetamines Screen NEGATIVE (NEGATIVE) 06/21/17 18:50 U Methamphetamines Scrn NEGATIVE (NEGATIVE) 06/21/17 18:50 U Benzodiazepines Scrn NEGATIVE (NEGATIVE) 06/21/17 18:50 U Cocaine Metab Screen NEGATIVE (NEGATIVE) 06/21/17 18:50 U Cannabinoids Screen NEGATIVE (NEGATIVE) 06/21/17 18:50 Ethyl Alcohol < 10 mg/dL (0-10) 06/21/17 16:58 RPR NONREACTIVE (NONREACTIVE) 06/21/17 16:58 - Physical Exam Vitals and I&O: Vital Signs Temp 98 F 06/27/17 06:21 Pulse 72 06/27/17 06:21 Resp 18 06/27/17 06:21 BP 116/66 06/27/17 06:21 Pulse Ox 98 06/27/17 06:21 Intake & Output 06/26/17 06/27/17 06/27/17 18:59 06:59 18:59 Intake Total 1800 240 Balance 1800 240 Intake: Oral 1800 240 Other: # Voids 5 1 # Bowel Movements 1 Active Medications: Current Medications Acetaminophen (Tylenol) 650 mg PO Q4HR PRN PRN Reason: Pain Stop: 08/22/17 09:04 Al Hydrox/Mg Hydrox/Simethicone (Maalox) 30 ml PO Q4HR PRN PRN Reason: GI DISTRESS Stop: 08/22/17 09:04 Aspirin (Aspirin Chewable) 81 mg PO DAILY GIOVANNA Stop: 08/22/17 08:59 Last Admin: 06/26/17 09:09 Dose: 81 mg Benazepril HCl (Lotensin) 20 mg PO DAILY GIOVANNA Stop: 08/22/17 08:59 Last Admin: 06/26/17 09:09 Dose: 20 mg Cholecalciferol (Vitamin D3) 2,000 iu PO DAILY GIOVANNA Stop: 08/23/17 08:59 Last Admin: 06/26/17 09:09 Dose: 2,000 iu Docusate Sodium (Colace) 100 mg PO DAILY GIOVANNA Stop: 08/22/17 08:59 Last Admin: 06/26/17 09:09 Dose: 100 mg Insulin Aspart (Novolog Insulin Sliding Scale) 0 units SUBQ ACHS GIOVANNA PRN Reason: Protocol Stop: 08/22/17 11:29 Last Admin: 06/27/17 06:38 Dose: Not Given Metformin HCl (Glucophage) 500 mg PO TID GIOVANNA Stop: 08/21/17 13:59 Last Admin: 06/26/17 21:58 Dose: 500 mg Multivitamins/Vitamin C (Theragran) 1 tab PO DAILY GIOVANNA Stop: 08/23/17 08:59 Last Admin: 06/26/17 09:09 Dose: 1 tab Phenytoin (Dilantin) 300 mg PO HS GIOVANNA Stop: 08/22/17 20:59 Last Admin: 06/26/17 21:59 Dose: 300 mg Quetiapine Fumarate (Seroquel) 12.5 mg PO HS GIOVANNA PRN Reason: Protocol Stop: 08/21/17 20:59 Last Admin: 06/26/17 21:59 Dose: 12.5 mg Quetiapine Fumarate (Seroquel) 12.5 mg PO HS GIOVANNA PRN Reason: Protocol Stop: 08/24/17 20:59 Last Admin: 06/26/17 21:59 Dose: 12.5 mg Tamsulosin HCl (Flomax) 0.4 mg PO DAILY [facility] Stop: 08/22/17 09:14 Last Admin: 06/26/17 09:09 Dose: 0.4 mg General: Alert, Cooperative, Other (Confused) HEENT: Atraumatic Neck: Supple Cardiovascular: Regular rate Lungs: Clear to auscultation Abdomen: Bowel sounds Extremities: Other (No edema) Neurological: Other (Unstable gait) Skin: Other (Warm and dry) Psych/Mental Status: Other (Awake, alert, confused) - Procedures Procedures: Procedures Procedure Code Date OTHER GROUP THERAPY 94.44 05/02/11 RECREATIONAL THERAPY 93.81 05/02/11 Assessment/Plan - Assessment Assessment: Patient is awake, calm in no acute distress. DX: Increased in agitation, Dementia, Schizophrenia, DM, HTN, CAD, Seizure disorder. - Plan Plan: Patient is continue with SNF medications. He is under Psychiatric care. Nutritional Asmnt/Malnutr-PDOC - Dietary Evaluation Malnutrition Findings (Please click <Entered> for more info): Nutritional Asmnt/Malnutrition Start: 06/22/17 16: 44 Text: Status: Complete Freq: Document 06/22/17 16:44 [email or web address] (Rec: 06/22/17 17:04 [email or web address]) Nutritional Asmnt/Malnutrition Patient General Information Nutritional Screening Consult Diagnosis Reason for visit: psychosis NOS Pertinent Medical Hx/Surgical Hx ER report: HTN, DM, CAD, CVA/ TIA, seizures, dementia, depression, schizophrenia, bipolar Subjective Information [address] consult for poor PO intake. Visited pt during meal time, pt seen in chair in rec room, had already finished dinner. Per RN notes , pt finished 100% dinner . Spoke to CAFETERIA WORKER, CAFETERIA WORKER stated pt with good appetite, unaware of sign of poor PO intake. PT is edentulous, tolerating current diet texture. Pt was pleasant, denied nutritinoal concerns, well dressed, stated food is good. No muscle fat wasting noted. Pt does appeared 147lb, however does not appear less than 5ft at BMI 34/obese. Current Diet Order/ Nutrition Support [id number] Pertinent Medications Colace, Glucophage, Seroquel Pertinent Labs 06/21: A1c 6.1H, glucose 187H Nutritional Hx/Data Height 1.4 m Height (Calculated Centimeters) 139.7 Current Weight (lbs) 66.678 kg Weight (Calculated Kilograms) 66.7 Weight (Calculated Grams) 86891.1 GI Symptoms Food Allergies No Skin Integrity/Comment: Richar Balderas. Skin intact. Current %PO Good (75-100%) Estimated Nutritional Goals BEE in Kcals: Using Current wt Calories/Kcals/Kg CBW 147lb/66.8kg Kcals Calculated 1670-2004kcal (25-30kcal/kg) Protein: Using Current wt Protein Calculated 67g (1g/kg) Fluid: ml 1670-2004ml (1ml/kcal) Nutritional Problem 1. Problem Problem Altered nutrition related laboratory values related to Etiology DM aeb Signs/Symptoms: A1c 6.1H, glucose 187H on adm Intervention/Recommendation Comments 1. Continue with current diet order. Avg PO intake is adequate. Pt is edentulous, monitor tolerance to diet texture. 2. Monitor PO intake. RD receieved consult for poor PO intake. However, pt RN notes and CAFETERIA WORKER verbal report, pt has been eating 100% of meals, meeting nutritnioal needs. No difficulties noted. 3. Monitor weight/height. Pt does not appear 4ft 7in at BMI 34/obese status. Expected Outcomes/Goals Expected Outcomes/Goals 1. PO intake to meet at least 75% of estimated nutritinoal needs.
[2017-06-27] MEDS: Multivitamin Tab PO SCH (09:14)
[2017-06-27] MEDS: Aspirin 81mg Chewable Tab PO SCH (09:15)
--- NOTE | 2017-06-28 02:39 | Progress Notes ---
DATE: 06/27/2017 Staff was spoken to. The patient is interviewed. Mood is noted to be less irritable. Affect is appropriate. Coping skills at this time are noted to be improving. No side effects to the medications are noted. The patient is currently on a very small dose of the Seroquel 12.5 mg and has been able to tolerate the medication. ASSESSMENT: The patient's psychosis is resolving, the irritability is coming under control. PLAN: To continue the patient with supportive therapy and followup. JOB# [id number]
[2017-06-28] MEDS: INSULIN ASPART SLIDING SCALE 100 UNITS/ML UNIT SUBQ SCH ×4 (06:54→20:32)
[2017-06-28] MEDS: Multivitamin Tab PO SCH (08:34)
[2017-06-28] MEDS: Aspirin 81mg Chewable Tab PO SCH (08:34)
--- NOTE | 2017-06-28 09:01 | General Progress Note ---
Subjective - Review of Systems Service Date: 06/28/17 Subjective: I am fine Objective - Results Result Diagrams: 06/21/17 16:58 06/21/17 16:58 Recent Labs: Laboratory Last Values WBC 8.6 Th/cmm (4.8-10.8) D 06/21/17 16:58 RBC 4.78 Mil/cmm (3.80-5.80) 06/21/17 16:58 Hgb 14.0 gm/dL (12-16) 06/21/17 16:58 Hct 41.7 % (41.0-60) 06/21/17 16:58 MCV 87.2 fl (80-99) 06/21/17 16:58 MCH 29.2 pg (27.0-31.0) 06/21/17 16:58 MCHC Differential 33.5 pg (28.0-36.0) 06/21/17 16:58 RDW 13.4 % (11.5-20.0) 06/21/17 16:58 Plt Count 208 Th/cmm (150-400) D 06/21/17 16:58 MPV 8.0 fl 06/21/17 16:58 Neutrophils % 59.7 % (40.0-80.0) 06/21/17 16:58 Lymphocytes % 26.7 % (20.0-50.0) 06/21/17 16:58 Monocytes % 10.0 % (2.0-10.0) 06/21/17 16:58 Eosinophils % 3.0 % (0.0-5.0) 06/21/17 16:58 Basophils % 0.6 % (0.0-2.0) 06/21/17 16:58 Sodium 132 mEq/L (136-145) L 06/21/17 16:58 Potassium 4.5 mEq/L (3.5-5.1) 06/21/17 16:58 Chloride 101 mEq/L (98-107) 06/21/17 16:58 Carbon Dioxide 25.9 mEq/L (21.0-31.0) 06/21/17 16:58 Anion Gap 9.6 (7.0-16.0) 06/21/17 16:58 BUN 19 mg/dL (7-25) 06/21/17 16:58 Creatinine 0.7 mg/dL (0.7-1.3) 06/21/17 16:58 Est GFR ( Amer) TNP 06/21/17 16:58 Est GFR (Non-Af Amer) TNP 06/21/17 16:58 BUN/Creatinine Ratio 27.1 06/21/17 16:58 Glucose 187 mg/dL (70-105) H 06/21/17 16:58 POC Glucose 95 MG/DL (70 - 105) 06/28/17 06:19 Hemoglobin A1c % 6.1 % (4.0-6.0) H 06/21/17 16:44 Calcium 9.0 mg/dL (8.6-10.3) 06/21/17 16:58 Total Bilirubin 0.2 mg/dL (0.3-1.0) L 06/21/17 16:58 AST 12 U/L (13-39) L 06/21/17 16:58 ALT 13 U/L (7-52) 06/21/17 16:58 Alkaline Phosphatase 119 U/L (34-104) H 06/21/17 16:58 Total Protein 5.9 gm/dL (6.0-8.3) L 06/21/17 16:58 Albumin 3.8 gm/dL (4.2-5.5) L 06/21/17 16:58 Globulin 2.1 gm/dL 06/21/17 16:58 Albumin/Globulin Ratio 1.8 (1.0-1.8) 06/21/17 16:58 Triglycerides 110 mg/dL (<150) 06/21/17 16:58 Cholesterol 185 mg/dL (<200) 06/21/17 16:58 LDL Cholesterol Direct 123 mg/dL (75-193) 06/21/17 16:58 HDL Cholesterol 48 mg/dL (23-92) 06/21/17 16:58 TSH 1.45 uIU/ml (0.34-5.60) 06/21/17 16:58 Urine Source CLEAN C 06/21/17 18:50 Urine Color YELLOW 06/21/17 18:50 Urine Clarity CLEAR (CLEAR) 06/21/17 18:50 Urine pH 6.0 (4.6 - 8.0) 06/21/17 18:50 Ur Specific [place] 1.010 (1.005-1.030) 06/21/17 18:50 Urine Protein NEGATIVE mg/dL (NEGATIVE) 06/21/17 18:50 Urine Glucose (UA) NEGATIVE mg/dL (NEGATIVE) 06/21/17 18:50 Urine Ketones NEGATIVE mg/dL (NEGATIVE) 06/21/17 18:50 Urine Blood NEGATIVE (NEGATIVE) 06/21/17 18:50 Urine Nitrate NEGATIVE (NEGATIVE) 06/21/17 18:50 Urine Bilirubin NEGATIVE (NEGATIVE) 06/21/17 18:50 Urine Urobilinogen 0.2 E.U./dL (0.2 - 1.0) 06/21/17 18:50 Ur Leukocyte Esterase NEGATIVE (NEGATIVE) 06/21/17 18:50 Urine RBC NONE SEEN /hpf (0-5) 06/21/17 18:50 Urine WBC NONE SEEN /hpf (0-5) 06/21/17 18:50 Ur Epithelial Cells NONE SEEN /lpf (FEW) 06/21/17 18:50 Urine Bacteria NONE SEEN /hpf (NONE SEEN) 06/21/17 18:50 Salicylates < 25.0 mg/L (30.0-100.0) L 06/21/17 16:58 Urine Opiates Screen NEGATIVE (NEGATIVE) 06/21/17 18:50 Urine Methadone Screen NEGATIVE (NEGATIVE) 06/21/17 18:50 Acetaminophen < 10.0 ug/mL (10.0-30.0) L 06/21/17 16:58 Ur Barbiturates Screen POSITIVE (NEGATIVE) H 06/21/17 18:50 Ur Tricyclics Screen NEGATIVE (NEGATIVE) 06/21/17 18:50 Ur Phencyclidine Scrn NEGATIVE (NEGATIVE) 06/21/17 18:50 Amphetamines Screen NEGATIVE (NEGATIVE) 06/21/17 18:50 U Methamphetamines Scrn NEGATIVE (NEGATIVE) 06/21/17 18:50 U Benzodiazepines Scrn NEGATIVE (NEGATIVE) 06/21/17 18:50 U Cocaine Metab Screen NEGATIVE (NEGATIVE) 06/21/17 18:50 U Cannabinoids Screen NEGATIVE (NEGATIVE) 06/21/17 18:50 Ethyl Alcohol < 10 mg/dL (0-10) 06/21/17 16:58 RPR NONREACTIVE (NONREACTIVE) 06/21/17 16:58 - Physical Exam Vitals and I&O: Vital Signs Temp 98.2 F 06/28/17 05:29 Pulse 89 06/28/17 08:35 Resp 20 06/28/17 05:29 BP 126/78 06/28/17 08:35 Pulse Ox 99 06/28/17 05:29 Intake & Output 06/27/17 06/28/17 06/28/17 18:59 06:59 18:59 Intake Total 700 120 Balance 700 120 Intake: Oral 700 120 Other: # Voids 3 3 # Bowel Movements 1 0 Active Medications: Current Medications Acetaminophen (Tylenol) 650 mg PO Q4HR PRN PRN Reason: Pain Stop: 08/22/17 09:04 Al Hydrox/Mg Hydrox/Simethicone (Maalox) 30 ml PO Q4HR PRN PRN Reason: GI DISTRESS Stop: 08/22/17 09:04 Aspirin (Aspirin Chewable) 81 mg PO DAILY [facility] Stop: 08/22/17 08:59 Last Admin: 06/28/17 08:34 Dose: 81 mg Benazepril HCl (Lotensin) 20 mg PO DAILY [facility] Stop: 08/22/17 08:59 Last Admin: 06/28/17 08:35 Dose: 20 mg Cholecalciferol (Vitamin D3) 2,000 iu PO DAILY [facility] Stop: 08/23/17 08:59 Last Admin: 06/28/17 08:34 Dose: 2,000 iu Docusate Sodium (Colace) 100 mg PO DAILY [facility] Stop: 08/22/17 08:59 Last Admin: 06/28/17 08:34 Dose: 100 mg Insulin Aspart (Novolog Insulin Sliding Scale) 0 units SUBQ ACHS [facility] PRN Reason: Protocol Stop: 08/22/17 11:29 Last Admin: 06/28/17 06:54 Dose: Not Given Metformin HCl (Glucophage) 500 mg PO TID [facility] Stop: 08/21/17 13:59 Last Admin: 06/28/17 08:34 Dose: 500 mg Multivitamins/Vitamin C (Theragran) 1 tab PO DAILY [facility] Stop: 08/23/17 08:59 Last Admin: 06/28/17 08:34 Dose: 1 tab Phenytoin (Dilantin) 300 mg PO HS [facility] Stop: 08/22/17 20:59 Last Admin: 06/27/17 20:54 Dose: 300 mg Quetiapine Fumarate (Seroquel) 12.5 mg PO HS [facility] PRN Reason: Protocol Stop: 08/21/17 20:59 Last Admin: 06/27/17 20:55 Dose: 12.5 mg Quetiapine Fumarate (Seroquel) 12.5 mg PO HS [facility] PRN Reason: Protocol Stop: 08/24/17 20:59 Last Admin: 06/27/17 20:56 Dose: 12.5 mg Tamsulosin HCl (Flomax) 0.4 mg PO DAILY [facility] Stop: 08/22/17 09:14 Last Admin: 06/28/17 08:35 Dose: 0.4 mg General: Alert, Cooperative, Other (Confused) HEENT: Atraumatic Neck: Supple Cardiovascular: Regular rate Lungs: Clear to auscultation Abdomen: Bowel sounds Extremities: Other (No edema) Neurological: Other (Unstable gait) Skin: Other (Warm and dry) Psych/Mental Status: Other (Awake, alert, confused) - Procedures Procedures: Procedures Procedure Code Date OTHER GROUP THERAPY 94.44 05/02/11 RECREATIONAL THERAPY 93.81 05/02/11 Assessment/Plan - Assessment Assessment: Patient is awake, calm in no acute distress. DX: Increased in agitation, Dementia, Schizophrenia, DM, HTN, CAD, Seizure disorder. - Plan Plan: Patient is continue with SNF medications. He is under Psychiatric care. Nutritional Asmnt/Malnutr-PDOC - Dietary Evaluation Malnutrition Findings (Please click <Entered> for more info): Nutritional Asmnt/Malnutrition Start: 06/22/17 16: 44 Text: Status: Complete Freq: Document 06/22/17 16:44 GSUN (Rec: 06/22/17 17:04 [email or web address]) Nutritional Asmnt/Malnutrition Patient General Information Nutritional Screening Consult Diagnosis Reason for visit: psychosis NOS Pertinent Medical Hx/Surgical Hx ER report: HTN, DM, CAD, CVA/ TIA, seizures, dementia, depression, schizophrenia, bipolar Subjective Information [address] consult for poor PO intake. Visited pt during meal time, pt seen in chair in rec room, had already finished dinner. Per RN notes , pt finished 100% dinner . Spoke to FORENSIC ECONOMIST, FORENSIC ECONOMIST stated pt with good appetite, unaware of sign of poor PO intake. PT is edentulous, tolerating current diet texture. Pt was pleasant, denied nutritinoal concerns, well dressed, stated food is good. No muscle fat wasting noted. Pt does appeared 147lb, however does not appear less than 5ft at BMI 34/obese. Current Diet Order/ Nutrition Support [id number] Pertinent Medications Colace, Glucophage, Seroquel Pertinent Labs 06/21: A1c 6.1H, glucose 187H Nutritional Hx/Data Height 1.4 m Height (Calculated Centimeters) 139.7 Current Weight (lbs) 66.678 kg Weight (Calculated Kilograms) 66.7 Weight (Calculated Grams) 87144.1 GI Symptoms Food Allergies No Skin Integrity/Comment: Richar 21. Skin intact. Current %PO Good (75-100%) Estimated Nutritional Goals BEE in Kcals: Using Current wt Calories/Kcals/Kg CBW 147lb/66.8kg Kcals Calculated 1670-2004kcal (25-30kcal/kg) Protein: Using Current wt Protein Calculated 67g (1g/kg) Fluid: ml 1670-2004ml (1ml/kcal) Nutritional Problem 1. Problem Problem Altered nutrition related laboratory values related to Etiology DM aeb Signs/Symptoms: A1c 6.1H, glucose 187H on adm Intervention/Recommendation Comments 1. Continue with current diet order. Avg PO intake is adequate. Pt is edentulous, monitor tolerance to diet texture. 2. Monitor PO intake. RD receieved consult for poor PO intake. However, pt RN notes and FORENSIC ECONOMIST verbal report, pt has been eating 100% of meals, meeting nutritnioal needs. No difficulties noted. 3. Monitor weight/height. Pt does not appear 4ft 7in at BMI 34/obese status. Expected Outcomes/Goals Expected Outcomes/Goals 1. PO intake to meet at least 75% of estimated nutritinoal needs.
--- NOTE | 2017-06-28 20:56 | Progress Notes ---
DATE: 06/28/2017 PSYCHIATRIC PROGRESS NOTE SUBJECTIVE: Staff was spoken to. The patient is interviewed. Mood is noted to be irritable. Affect is constricted. The patient's insight and judgment are noted to be still impaired. No side effects to the medications are noted. The patient has been having difficult time to cope with the stress. No side effects to the medications are noted. The patient needs to be treated. The confusion maybe is the problem mainly towards the end of the day. ASSESSMENT: The patient is still paranoid and demented. PLAN: To continue the patient with the supportive therapy. Increase the dose on the Seroquel to 25 mg at bedtime and follow the patient. JOB# [id number]
[2017-06-29] MEDS: INSULIN ASPART SLIDING SCALE 100 UNITS/ML UNIT SUBQ SCH ×4 (07:07→20:55)
[2017-06-29] MEDS: Aspirin 81mg Chewable Tab PO SCH (08:50)
[2017-06-29] MEDS: Multivitamin Tab PO SCH (08:50)
--- NOTE | 2017-06-29 11:39 | General Progress Note ---
Subjective - Review of Systems Service Date: 06/29/17 Subjective: I am fine Objective - Results Result Diagrams: 06/21/17 16:58 06/21/17 16:58 Recent Labs: Laboratory Last Values WBC 8.6 Th/cmm (4.8-10.8) D 06/21/17 16:58 RBC 4.78 Mil/cmm (3.80-5.80) 06/21/17 16:58 Hgb 14.0 gm/dL (12-16) 06/21/17 16:58 Hct 41.7 % (41.0-60) 06/21/17 16:58 MCV 87.2 fl (80-99) 06/21/17 16:58 MCH 29.2 pg (27.0-31.0) 06/21/17 16:58 MCHC Differential 33.5 pg (28.0-36.0) 06/21/17 16:58 RDW 13.4 % (11.5-20.0) 06/21/17 16:58 Plt Count 208 Th/cmm (150-400) D 06/21/17 16:58 MPV 8.0 fl 06/21/17 16:58 Neutrophils % 59.7 % (40.0-80.0) 06/21/17 16:58 Lymphocytes % 26.7 % (20.0-50.0) 06/21/17 16:58 Monocytes % 10.0 % (2.0-10.0) 06/21/17 16:58 Eosinophils % 3.0 % (0.0-5.0) 06/21/17 16:58 Basophils % 0.6 % (0.0-2.0) 06/21/17 16:58 Sodium 132 mEq/L (136-145) L 06/21/17 16:58 Potassium 4.5 mEq/L (3.5-5.1) 06/21/17 16:58 Chloride 101 mEq/L (98-107) 06/21/17 16:58 Carbon Dioxide 25.9 mEq/L (21.0-31.0) 06/21/17 16:58 Anion Gap 9.6 (7.0-16.0) 06/21/17 16:58 BUN 19 mg/dL (7-25) 06/21/17 16:58 Creatinine 0.7 mg/dL (0.7-1.3) 06/21/17 16:58 Est GFR ( Amer) TNP 06/21/17 16:58 Est GFR (Non-Af Amer) TNP 06/21/17 16:58 BUN/Creatinine Ratio 27.1 06/21/17 16:58 Glucose 187 mg/dL (70-105) H 06/21/17 16:58 POC Glucose 91 MG/DL (70 - 105) 06/29/17 06:25 Hemoglobin A1c % 6.1 % (4.0-6.0) H 06/21/17 16:44 Calcium 9.0 mg/dL (8.6-10.3) 06/21/17 16:58 Total Bilirubin 0.2 mg/dL (0.3-1.0) L 06/21/17 16:58 AST 12 U/L (13-39) L 06/21/17 16:58 ALT 13 U/L (7-52) 06/21/17 16:58 Alkaline Phosphatase 119 U/L (34-104) H 06/21/17 16:58 Total Protein 5.9 gm/dL (6.0-8.3) L 06/21/17 16:58 Albumin 3.8 gm/dL (4.2-5.5) L 06/21/17 16:58 Globulin 2.1 gm/dL 06/21/17 16:58 Albumin/Globulin Ratio 1.8 (1.0-1.8) 06/21/17 16:58 Triglycerides 110 mg/dL (<150) 06/21/17 16:58 Cholesterol 185 mg/dL (<200) 06/21/17 16:58 LDL Cholesterol Direct 123 mg/dL (75-193) 06/21/17 16:58 HDL Cholesterol 48 mg/dL (23-92) 06/21/17 16:58 TSH 1.45 uIU/ml (0.34-5.60) 06/21/17 16:58 Urine Source CLEAN C 06/21/17 18:50 Urine Color YELLOW 06/21/17 18:50 Urine Clarity CLEAR (CLEAR) 06/21/17 18:50 Urine pH 6.0 (4.6 - 8.0) 06/21/17 18:50 Ur Specific [place] 1.010 (1.005-1.030) 06/21/17 18:50 Urine Protein NEGATIVE mg/dL (NEGATIVE) 06/21/17 18:50 Urine Glucose (UA) NEGATIVE mg/dL (NEGATIVE) 06/21/17 18:50 Urine Ketones NEGATIVE mg/dL (NEGATIVE) 06/21/17 18:50 Urine Blood NEGATIVE (NEGATIVE) 06/21/17 18:50 Urine Nitrate NEGATIVE (NEGATIVE) 06/21/17 18:50 Urine Bilirubin NEGATIVE (NEGATIVE) 06/21/17 18:50 Urine Urobilinogen 0.2 E.U./dL (0.2 - 1.0) 06/21/17 18:50 Ur Leukocyte Esterase NEGATIVE (NEGATIVE) 06/21/17 18:50 Urine RBC NONE SEEN /hpf (0-5) 06/21/17 18:50 Urine WBC NONE SEEN /hpf (0-5) 06/21/17 18:50 Ur Epithelial Cells NONE SEEN /lpf (FEW) 06/21/17 18:50 Urine Bacteria NONE SEEN /hpf (NONE SEEN) 06/21/17 18:50 Salicylates < 25.0 mg/L (30.0-100.0) L 06/21/17 16:58 Urine Opiates Screen NEGATIVE (NEGATIVE) 06/21/17 18:50 Urine Methadone Screen NEGATIVE (NEGATIVE) 06/21/17 18:50 Acetaminophen < 10.0 ug/mL (10.0-30.0) L 06/21/17 16:58 Ur Barbiturates Screen POSITIVE (NEGATIVE) H 06/21/17 18:50 Ur Tricyclics Screen NEGATIVE (NEGATIVE) 06/21/17 18:50 Ur Phencyclidine Scrn NEGATIVE (NEGATIVE) 06/21/17 18:50 Amphetamines Screen NEGATIVE (NEGATIVE) 06/21/17 18:50 U Methamphetamines Scrn NEGATIVE (NEGATIVE) 06/21/17 18:50 U Benzodiazepines Scrn NEGATIVE (NEGATIVE) 06/21/17 18:50 U Cocaine Metab Screen NEGATIVE (NEGATIVE) 06/21/17 18:50 U Cannabinoids Screen NEGATIVE (NEGATIVE) 06/21/17 18:50 Ethyl Alcohol < 10 mg/dL (0-10) 06/21/17 16:58 RPR NONREACTIVE (NONREACTIVE) 06/21/17 16:58 - Physical Exam Vitals and I&O: Vital Signs Temp 98.2 F 06/29/17 06:41 Pulse 85 06/29/17 08:50 Resp 20 06/29/17 06:41 BP 106/62 06/29/17 08:50 Pulse Ox 97 06/29/17 06:41 Intake & Output 06/28/17 06/29/17 06/29/17 18:59 06:59 18:59 Intake Total 800 120 Balance 800 120 Intake: Oral 800 120 Other: # Voids 3 3 # Bowel Movements 0 Active Medications: Current Medications Acetaminophen (Tylenol) 650 mg PO Q4HR PRN PRN Reason: Pain Stop: 08/22/17 09:04 Al Hydrox/Mg Hydrox/Simethicone (Maalox) 30 ml PO Q4HR PRN PRN Reason: GI DISTRESS Stop: 08/22/17 09:04 Aspirin (Aspirin Chewable) 81 mg PO DAILY [facility] Stop: 08/22/17 08:59 Last Admin: 06/29/17 08:50 Dose: 81 mg Benazepril HCl (Lotensin) 20 mg PO DAILY [facility] Stop: 08/22/17 08:59 Last Admin: 06/29/17 08:50 Dose: 20 mg Cholecalciferol (Vitamin D3) 2,000 iu PO DAILY [facility] Stop: 08/23/17 08:59 Last Admin: 06/29/17 08:50 Dose: 2,000 iu Docusate Sodium (Colace) 100 mg PO DAILY [facility] Stop: 08/22/17 08:59 Last Admin: 06/29/17 08:50 Dose: 100 mg Insulin Aspart (Novolog Insulin Sliding Scale) 0 units SUBQ ACHS [facility] PRN Reason: Protocol Stop: 08/22/17 11:29 Last Admin: 06/29/17 07:07 Dose: Not Given Metformin HCl (Glucophage) 500 mg PO TID [facility] Stop: 08/21/17 13:59 Last Admin: 06/29/17 08:50 Dose: 500 mg Multivitamins/Vitamin C (Theragran) 1 tab PO DAILY [facility] Stop: 08/23/17 08:59 Last Admin: 06/29/17 08:50 Dose: 1 tab Phenytoin (Dilantin) 300 mg PO HS [facility] Stop: 08/22/17 20:59 Last Admin: 06/28/17 20:58 Dose: 300 mg Quetiapine Fumarate (Seroquel) 12.5 mg PO HS [facility] PRN Reason: Protocol Stop: 08/21/17 20:59 Last Admin: 06/28/17 21:08 Dose: 12.5 mg Quetiapine Fumarate (Seroquel) 25 mg PO HS [facility] PRN Reason: Protocol Stop: 08/24/17 20:59 Last Admin: 06/28/17 20:57 Dose: 25 mg Tamsulosin HCl (Flomax) 0.4 mg PO DAILY [facility] Stop: 08/22/17 09:14 Last Admin: 06/29/17 08:50 Dose: 0.4 mg General: Alert, Cooperative, Other (Confused) HEENT: Atraumatic Neck: Supple Cardiovascular: Regular rate Lungs: Clear to auscultation Abdomen: Bowel sounds Extremities: Other (No edema) Neurological: Other (Unstable gait) Skin: Other (Warm and dry) Psych/Mental Status: Other (Awake, alert, confused) - Procedures Procedures: Procedures Procedure Code Date OTHER GROUP THERAPY 94.44 05/02/11 RECREATIONAL THERAPY 93.81 05/02/11 Assessment/Plan - Assessment Assessment: Patient is awake, calm in no acute distress. DX: Increased in agitation, Dementia, Schizophrenia, DM, HTN, CAD, Seizure disorder. - Plan Plan: Patient is continue with SNF medications. He is under Psychiatric care. Nutritional Asmnt/Malnutr-PDOC - Dietary Evaluation Malnutrition Findings (Please click <Entered> for more info): Nutritional Asmnt/Malnutrition Start: 06/22/17 16: 44 Text: Status: Complete Freq: Document 06/22/17 16:44 GSUN (Rec: 06/22/17 17:04 [email or web address]) Nutritional Asmnt/Malnutrition Patient General Information Nutritional Screening Consult Diagnosis Reason for visit: psychosis NOS Pertinent Medical Hx/Surgical Hx ER report: HTN, DM, CAD, CVA/ TIA, seizures, dementia, depression, schizophrenia, bipolar Subjective Information [address] consult for poor PO intake. Visited pt during meal time, pt seen in chair in rec room, had already finished dinner. Per RN notes , pt finished 100% dinner . Spoke to ADJUNCT PROFESSOR OF VOICE, ADJUNCT PROFESSOR OF VOICE stated pt with good appetite, unaware of sign of poor PO intake. PT is edentulous, tolerating current diet texture. Pt was pleasant, denied nutritinoal concerns, well dressed, stated food is good. No muscle fat wasting noted. Pt does appeared 147lb, however does not appear less than 5ft at BMI 34/obese. Current Diet Order/ Nutrition Support [id number] Pertinent Medications Colace, Glucophage, Seroquel Pertinent Labs 06/21: A1c 6.1H, glucose 187H Nutritional Hx/Data Height 1.4 m Height (Calculated Centimeters) 139.7 Current Weight (lbs) 66.678 kg Weight (Calculated Kilograms) 66.7 Weight (Calculated Grams) 32893.1 GI Symptoms Food Allergies No Skin Integrity/Comment: Richar Balderas. Skin intact. Current %PO Good (75-100%) Estimated Nutritional Goals BEE in Kcals: Using Current wt Calories/Kcals/Kg CBW 147lb/66.8kg Kcals Calculated 1670-2004kcal (25-30kcal/kg) Protein: Using Current wt Protein Calculated 67g (1g/kg) Fluid: ml 1670-2004ml (1ml/kcal) Nutritional Problem 1. Problem Problem Altered nutrition related laboratory values related to Etiology DM aeb Signs/Symptoms: A1c 6.1H, glucose 187H on adm Intervention/Recommendation Comments 1. Continue with current diet order. Avg PO intake is adequate. Pt is edentulous, monitor tolerance to diet texture. 2. Monitor PO intake. RD receieved consult for poor PO intake. However, pt RN notes and ADJUNCT PROFESSOR OF VOICE verbal report, pt has been eating 100% of meals, meeting nutritnioal needs. No difficulties noted. 3. Monitor weight/height. Pt does not appear 4ft 7in at BMI 34/obese status. Expected Outcomes/Goals Expected Outcomes/Goals 1. PO intake to meet at least 75% of estimated nutritinoal needs.
--- NOTE | 2017-06-29 23:07 | Progress Notes ---
DATE: 06/29/[address] Young. SUBJECTIVE: The patient was seen, chart reviewed, and discussed with staff. The patient is coming to the hospital, easily agitated, not agustina for safety, needing stabilization, sleep poor, appetite poor. The patient noted to be quite labile, but overall calmer per staff. History of dementia. Dr. Young has been noting that over the past few days, the patient remains labile, still impulsive, still impaired insight and judgment. Difficult time in coping, still with paranoia and dementia. Suspiciousness. No side effects noted to medications. ASSESSMENT: The patient remains confused, still labile, agitates, hard to redirect, impulsive, and unpredictable. PLAN: Continue to monitor given recent dose increase of Seroquel, we will continue at current dose. We will follow up. [facility]# [id number]
[2017-06-30] MEDS: INSULIN ASPART SLIDING SCALE 100 UNITS/ML UNIT SUBQ SCH ×4 (06:36→20:25)
[2017-06-30] MEDS: Aspirin 81mg Chewable Tab PO SCH (08:40)
[2017-06-30] MEDS: Multivitamin Tab PO SCH (08:42)
--- NOTE | 2017-06-30 08:43 | General Progress Note ---
Subjective - Review of Systems Service Date: 06/30/17 Subjective: I am fine Objective - Results Result Diagrams: 06/21/17 16:58 06/21/17 16:58 Recent Labs: Laboratory Last Values WBC 8.6 Th/cmm (4.8-10.8) D 06/21/17 16:58 RBC 4.78 Mil/cmm (3.80-5.80) 06/21/17 16:58 Hgb 14.0 gm/dL (12-16) 06/21/17 16:58 Hct 41.7 % (41.0-60) 06/21/17 16:58 MCV 87.2 fl (80-99) 06/21/17 16:58 MCH 29.2 pg (27.0-31.0) 06/21/17 16:58 MCHC Differential 33.5 pg (28.0-36.0) 06/21/17 16:58 RDW 13.4 % (11.5-20.0) 06/21/17 16:58 Plt Count 208 Th/cmm (150-400) D 06/21/17 16:58 MPV 8.0 fl 06/21/17 16:58 Neutrophils % 59.7 % (40.0-80.0) 06/21/17 16:58 Lymphocytes % 26.7 % (20.0-50.0) 06/21/17 16:58 Monocytes % 10.0 % (2.0-10.0) 06/21/17 16:58 Eosinophils % 3.0 % (0.0-5.0) 06/21/17 16:58 Basophils % 0.6 % (0.0-2.0) 06/21/17 16:58 Sodium 132 mEq/L (136-145) L 06/21/17 16:58 Potassium 4.5 mEq/L (3.5-5.1) 06/21/17 16:58 Chloride 101 mEq/L (98-107) 06/21/17 16:58 Carbon Dioxide 25.9 mEq/L (21.0-31.0) 06/21/17 16:58 Anion Gap 9.6 (7.0-16.0) 06/21/17 16:58 BUN 19 mg/dL (7-25) 06/21/17 16:58 Creatinine 0.7 mg/dL (0.7-1.3) 06/21/17 16:58 Est GFR ( Amer) TNP 06/21/17 16:58 Est GFR (Non-Af Amer) TNP 06/21/17 16:58 BUN/Creatinine Ratio 27.1 06/21/17 16:58 Glucose 187 mg/dL (70-105) H 06/21/17 16:58 POC Glucose 105 MG/DL (70 - 105) 06/30/17 06:22 Hemoglobin A1c % 6.1 % (4.0-6.0) H 06/21/17 16:44 Calcium 9.0 mg/dL (8.6-10.3) 06/21/17 16:58 Total Bilirubin 0.2 mg/dL (0.3-1.0) L 06/21/17 16:58 AST 12 U/L (13-39) L 06/21/17 16:58 ALT 13 U/L (7-52) 06/21/17 16:58 Alkaline Phosphatase 119 U/L (34-104) H 06/21/17 16:58 Total Protein 5.9 gm/dL (6.0-8.3) L 06/21/17 16:58 Albumin 3.8 gm/dL (4.2-5.5) L 06/21/17 16:58 Globulin 2.1 gm/dL 06/21/17 16:58 Albumin/Globulin Ratio 1.8 (1.0-1.8) 06/21/17 16:58 Triglycerides 110 mg/dL (<150) 06/21/17 16:58 Cholesterol 185 mg/dL (<200) 06/21/17 16:58 LDL Cholesterol Direct 123 mg/dL (75-193) 06/21/17 16:58 HDL Cholesterol 48 mg/dL (23-92) 06/21/17 16:58 TSH 1.45 uIU/ml (0.34-5.60) 06/21/17 16:58 Urine Source CLEAN C 06/21/17 18:50 Urine Color YELLOW 06/21/17 18:50 Urine Clarity CLEAR (CLEAR) 06/21/17 18:50 Urine pH 6.0 (4.6 - 8.0) 06/21/17 18:50 Ur Specific [place] 1.010 (1.005-1.030) 06/21/17 18:50 Urine Protein NEGATIVE mg/dL (NEGATIVE) 06/21/17 18:50 Urine Glucose (UA) NEGATIVE mg/dL (NEGATIVE) 06/21/17 18:50 Urine Ketones NEGATIVE mg/dL (NEGATIVE) 06/21/17 18:50 Urine Blood NEGATIVE (NEGATIVE) 06/21/17 18:50 Urine Nitrate NEGATIVE (NEGATIVE) 06/21/17 18:50 Urine Bilirubin NEGATIVE (NEGATIVE) 06/21/17 18:50 Urine Urobilinogen 0.2 E.U./dL (0.2 - 1.0) 06/21/17 18:50 Ur Leukocyte Esterase NEGATIVE (NEGATIVE) 06/21/17 18:50 Urine RBC NONE SEEN /hpf (0-5) 06/21/17 18:50 Urine WBC NONE SEEN /hpf (0-5) 06/21/17 18:50 Ur Epithelial Cells NONE SEEN /lpf (FEW) 06/21/17 18:50 Urine Bacteria NONE SEEN /hpf (NONE SEEN) 06/21/17 18:50 Salicylates < 25.0 mg/L (30.0-100.0) L 06/21/17 16:58 Urine Opiates Screen NEGATIVE (NEGATIVE) 06/21/17 18:50 Urine Methadone Screen NEGATIVE (NEGATIVE) 06/21/17 18:50 Acetaminophen < 10.0 ug/mL (10.0-30.0) L 06/21/17 16:58 Ur Barbiturates Screen POSITIVE (NEGATIVE) H 06/21/17 18:50 Ur Tricyclics Screen NEGATIVE (NEGATIVE) 06/21/17 18:50 Ur Phencyclidine Scrn NEGATIVE (NEGATIVE) 06/21/17 18:50 Amphetamines Screen NEGATIVE (NEGATIVE) 06/21/17 18:50 U Methamphetamines Scrn NEGATIVE (NEGATIVE) 06/21/17 18:50 U Benzodiazepines Scrn NEGATIVE (NEGATIVE) 06/21/17 18:50 U Cocaine Metab Screen NEGATIVE (NEGATIVE) 06/21/17 18:50 U Cannabinoids Screen NEGATIVE (NEGATIVE) 06/21/17 18:50 Ethyl Alcohol < 10 mg/dL (0-10) 06/21/17 16:58 RPR NONREACTIVE (NONREACTIVE) 06/21/17 16:58 - Physical Exam Vitals and I&O: Vital Signs Temp 98.2 F 06/29/17 14:00 Pulse 80 06/29/17 14:00 Resp 20 06/29/17 14:00 BP 105/62 06/29/17 14:00 Pulse Ox 96 06/29/17 14:00 Intake & Output 06/29/17 06/30/17 06/30/17 18:59 06:59 18:59 Intake Total 1200 Balance 1200 Weight (lbs) 58.332 kg Intake: Oral 1200 Other: # Bowel Movements 1 Stool Characteristics Soft Formed Active Medications: Current Medications Acetaminophen (Tylenol) 650 mg PO Q4HR PRN PRN Reason: Pain Stop: 08/22/17 09:04 Al Hydrox/Mg Hydrox/Simethicone (Maalox) 30 ml PO Q4HR PRN PRN Reason: GI DISTRESS Stop: 08/22/17 09:04 Aspirin (Aspirin Chewable) 81 mg PO DAILY [facility] Stop: 08/22/17 08:59 Last Admin: 06/29/17 08:50 Dose: 81 mg Benazepril HCl (Lotensin) 20 mg PO DAILY [facility] Stop: 08/22/17 08:59 Last Admin: 06/29/17 08:50 Dose: 20 mg Cholecalciferol (Vitamin D3) 2,000 iu PO DAILY [facility] Stop: 08/23/17 08:59 Last Admin: 06/29/17 08:50 Dose: 2,000 iu Docusate Sodium (Colace) 100 mg PO DAILY [facility] Stop: 08/22/17 08:59 Last Admin: 06/29/17 08:50 Dose: 100 mg Insulin Aspart (Novolog Insulin Sliding Scale) 0 units SUBQ ACHS [facility] PRN Reason: Protocol Stop: 08/22/17 11:29 Last Admin: 06/30/17 06:36 Dose: Not Given Metformin HCl (Glucophage) 500 mg PO TID [facility] Stop: 08/21/17 13:59 Last Admin: 06/29/17 20:54 Dose: 500 mg Multivitamins/Vitamin C (Theragran) 1 tab PO DAILY [facility] Stop: 08/23/17 08:59 Last Admin: 06/29/17 08:50 Dose: 1 tab Phenytoin (Dilantin) 300 mg PO HS [facility] Stop: 08/22/17 20:59 Last Admin: 06/29/17 20:54 Dose: 300 mg Quetiapine Fumarate (Seroquel) 12.5 mg PO HS [facility] PRN Reason: Protocol Stop: 08/21/17 20:59 Last Admin: 06/29/17 20:54 Dose: 12.5 mg Quetiapine Fumarate (Seroquel) 25 mg PO HS [facility] PRN Reason: Protocol Stop: 08/24/17 20:59 Last Admin: 06/29/17 20:56 Dose: 25 mg Tamsulosin HCl (Flomax) 0.4 mg PO DAILY [facility] Stop: 08/22/17 09:14 Last Admin: 06/29/17 08:50 Dose: 0.4 mg General: Alert, Cooperative, Other (Confused) HEENT: Atraumatic Neck: Supple Cardiovascular: Regular rate Lungs: Clear to auscultation Abdomen: Bowel sounds Extremities: Other (No edema) Neurological: Other (Unstable gait) Skin: Other (Warm and dry) Psych/Mental Status: Other (Awake, alert, confused) - Procedures Procedures: Procedures Procedure Code Date OTHER GROUP THERAPY 94.44 05/02/11 RECREATIONAL THERAPY 93.81 05/02/11 Assessment/Plan - Assessment Assessment: Patient is awake, calm in no acute distress. DX: Increased in agitation, Dementia, Schizophrenia, DM, HTN, CAD, Seizure disorder. - Plan Plan: Patient is continue with SNF medications. He is under Psychiatric care. Nutritional Asmnt/Malnutr-PDOC - Dietary Evaluation Malnutrition Findings (Please click <Entered> for more info): Nutritional Asmnt/Malnutrition Start: 06/22/17 16: 44 Text: Status: Complete Freq: Document 06/22/17 16:44 GSUN (Rec: 06/22/17 17:04 [email or web address]) Nutritional Asmnt/Malnutrition Patient General Information Nutritional Screening Consult Diagnosis Reason for visit: psychosis NOS Pertinent Medical Hx/Surgical Hx ER report: HTN, DM, CAD, CVA/ TIA, seizures, dementia, depression, schizophrenia, bipolar Subjective Information [address] consult for poor PO intake. Visited pt during meal time, pt seen in chair in rec room, had already finished dinner. Per RN notes , pt finished 100% dinner . Spoke to [employer], [employer] stated pt with good appetite, unaware of sign of poor PO intake. PT is edentulous, tolerating current diet texture. Pt was pleasant, denied nutritinoal concerns, well dressed, stated food is good. No muscle fat wasting noted. Pt does appeared 147lb, however does not appear less than 5ft at BMI 34/obese. Current Diet Order/ Nutrition Support [id number] Pertinent Medications Colace, Glucophage, Seroquel Pertinent Labs 06/21: A1c 6.1H, glucose 187H Nutritional Hx/Data Height 1.4 m Height (Calculated Centimeters) 139.7 Current Weight (lbs) 66.678 kg Weight (Calculated Kilograms) 66.7 Weight (Calculated Grams) 40283.1 GI Symptoms Food Allergies No Skin Integrity/Comment: Richar 21. Skin intact. Current %PO Good (75-100%) Estimated Nutritional Goals BEE in Kcals: Using Current wt Calories/Kcals/Kg CBW 147lb/66.8kg Kcals Calculated 1670-2004kcal (25-30kcal/kg) Protein: Using Current wt Protein Calculated 67g (1g/kg) Fluid: ml 1670-2004ml (1ml/kcal) Nutritional Problem 1. Problem Problem Altered nutrition related laboratory values related to Etiology DM aeb Signs/Symptoms: A1c 6.1H, glucose 187H on adm Intervention/Recommendation Comments 1. Continue with current diet order. Avg PO intake is adequate. Pt is edentulous, monitor tolerance to diet texture. 2. Monitor PO intake. RD receieved consult for poor PO intake. However, pt RN notes and [employer] verbal report, pt has been eating 100% of meals, meeting nutritnioal needs. No difficulties noted. 3. Monitor weight/height. Pt does not appear 4ft 7in at BMI 34/obese status. Expected Outcomes/Goals Expected Outcomes/Goals 1. PO intake to meet at least 75% of estimated nutritinoal needs.
[2017-06-30] MEDS ORDERED: Haloperidol Lactate 5 mg/mL 1mL Vial ONE (18:17)
[2017-06-30] MEDS ORDERED: Haloperidol Lactate 5 mg/mL 1mL Vial IM STA (18:17)
[2017-06-30] MEDS ORDERED: Haloperidol Lactate 5 mg/mL 1mL Vial IM ONE (19:30)
--- NOTE | 2017-07-01 02:17 | Progress Notes ---
DATE: SUBJECTIVE: The patient was seen, chart reviewed, and discussed with staff. The patient currently remains symptomatic, currently on exam, seen with an tufter. The patient still remains symptomatic, labile, bizarre, for example, he suddenly per the staff was eating dinner and then was hiding under the tables, noted to be paranoid. Unclear as to why he was hiding or whose he was hiding from. The patient with continued poor memory, somewhat disoriented, really does not know why he is here. MEDICATIONS: Noted and reviewed including dosages and frequency. No medication side effects noted. ASSESSMENT: The patient remains symptomatic, not safe for a lower level of care. Given the severity of his ongoing symptoms, he is not safe for discharge at this time. JOB# [id number]
[2017-07-01] MEDS: INSULIN ASPART SLIDING SCALE 100 UNITS/ML UNIT SUBQ SCH ×4 (06:35→21:00)
[2017-07-01] MEDS: Aspirin 81mg Chewable Tab PO SCH (09:23)
[2017-07-01] MEDS: Multivitamin Tab PO SCH (09:27)
--- NOTE | 2017-07-01 11:19 | Progress Notes ---
DATE: SUBJECTIVE: The patient seen, chart reviewed, discussed with staff. The patient remains symptomatic, still labile. He slept fairly well last night. No behaviors overnight, but still at times screaming uncontrollably, impulsive, unpredictable, continued poor memory, some confusion noted. The patient is currently in the hospital, easily agitated, aggressive. Medications were reviewed. No known side effects. ASSESSMENT: The patient remains symptomatic, still impulsive, unpredictable. The patient is currently under the care of Dr. Young. The patient still requiring emergency medications, still aggressive at times, bizarre, hiding under tables. PLAN: We will continue to monitor, not safe for discharge. JOB# [id number]
[2017-07-02] MEDS: INSULIN ASPART SLIDING SCALE 100 UNITS/ML UNIT SUBQ SCH ×3 (06:39→20:38)
[2017-07-02] MEDS: Aspirin 81mg Chewable Tab PO SCH (09:45)
[2017-07-02] MEDS: Multivitamin Tab PO SCH (09:45)
--- NOTE | 2017-07-02 12:08 | Progress Notes ---
DATE: SUBJECTIVE: The patient seen, chart reviewed, discussed with staff. The patient is coming from [facility], multiple hospitalizations, getting easily agitated, unruly, upset, aggressive. The patient remains depressed, guarded, still suspicious, still with symptoms, but symptoms do seem to be dissipating. He is somewhat calmer, denying for example any SI, still impulsive, unpredictable, bizarre behaviors over the past few days, but no behaviors over the past 24 hours. ASSESSMENT: The patient remains symptomatic, still acting odd, suspicious, but calmer. Medications were reviewed. No medication side effects noted at this time. No EPS. PLAN: We will continue to monitor. Given the patient's ongoing symptoms, not safe for discharge. Medications were noted. Currently on Seroquel ____ at bedtime. JOB# [id number]
--- NOTE | 2017-07-02 12:46 | General Progress Note ---
Subjective - Review of Systems Service Date: 07/02/17 Subjective: I am fine Objective - Results Result Diagrams: 06/21/17 16:58 06/21/17 16:58 Recent Labs: Laboratory Last Values WBC 8.6 Th/cmm (4.8-10.8) D 06/21/17 16:58 RBC 4.78 Mil/cmm (3.80-5.80) 06/21/17 16:58 Hgb 14.0 gm/dL (12-16) 06/21/17 16:58 Hct 41.7 % (41.0-60) 06/21/17 16:58 MCV 87.2 fl (80-99) 06/21/17 16:58 MCH 29.2 pg (27.0-31.0) 06/21/17 16:58 MCHC Differential 33.5 pg (28.0-36.0) 06/21/17 16:58 RDW 13.4 % (11.5-20.0) 06/21/17 16:58 Plt Count 208 Th/cmm (150-400) D 06/21/17 16:58 MPV 8.0 fl 06/21/17 16:58 Neutrophils % 59.7 % (40.0-80.0) 06/21/17 16:58 Lymphocytes % 26.7 % (20.0-50.0) 06/21/17 16:58 Monocytes % 10.0 % (2.0-10.0) 06/21/17 16:58 Eosinophils % 3.0 % (0.0-5.0) 06/21/17 16:58 Basophils % 0.6 % (0.0-2.0) 06/21/17 16:58 Sodium 132 mEq/L (136-145) L 06/21/17 16:58 Potassium 4.5 mEq/L (3.5-5.1) 06/21/17 16:58 Chloride 101 mEq/L (98-107) 06/21/17 16:58 Carbon Dioxide 25.9 mEq/L (21.0-31.0) 06/21/17 16:58 Anion Gap 9.6 (7.0-16.0) 06/21/17 16:58 BUN 19 mg/dL (7-25) 06/21/17 16:58 Creatinine 0.7 mg/dL (0.7-1.3) 06/21/17 16:58 Est GFR ( Amer) TNP 06/21/17 16:58 Est GFR (Non-Af Amer) TNP 06/21/17 16:58 BUN/Creatinine Ratio 27.1 06/21/17 16:58 Glucose 187 mg/dL (70-105) H 06/21/17 16:58 POC Glucose 150 MG/DL (70 - 105) H 07/02/17 11:29 Hemoglobin A1c % 6.1 % (4.0-6.0) H 06/21/17 16:44 Calcium 9.0 mg/dL (8.6-10.3) 06/21/17 16:58 Total Bilirubin 0.2 mg/dL (0.3-1.0) L 06/21/17 16:58 AST 12 U/L (13-39) L 06/21/17 16:58 ALT 13 U/L (7-52) 06/21/17 16:58 Alkaline Phosphatase 119 U/L (34-104) H 06/21/17 16:58 Total Protein 5.9 gm/dL (6.0-8.3) L 06/21/17 16:58 Albumin 3.8 gm/dL (4.2-5.5) L 06/21/17 16:58 Globulin 2.1 gm/dL 06/21/17 16:58 Albumin/Globulin Ratio 1.8 (1.0-1.8) 06/21/17 16:58 Triglycerides 110 mg/dL (<150) 06/21/17 16:58 Cholesterol 185 mg/dL (<200) 06/21/17 16:58 LDL Cholesterol Direct 123 mg/dL (75-193) 06/21/17 16:58 HDL Cholesterol 48 mg/dL (23-92) 06/21/17 16:58 TSH 1.45 uIU/ml (0.34-5.60) 06/21/17 16:58 Urine Source CLEAN C 06/21/17 18:50 Urine Color YELLOW 06/21/17 18:50 Urine Clarity CLEAR (CLEAR) 06/21/17 18:50 Urine pH 6.0 (4.6 - 8.0) 06/21/17 18:50 Ur Specific [place] 1.010 (1.005-1.030) 06/21/17 18:50 Urine Protein NEGATIVE mg/dL (NEGATIVE) 06/21/17 18:50 Urine Glucose (UA) NEGATIVE mg/dL (NEGATIVE) 06/21/17 18:50 Urine Ketones NEGATIVE mg/dL (NEGATIVE) 06/21/17 18:50 Urine Blood NEGATIVE (NEGATIVE) 06/21/17 18:50 Urine Nitrate NEGATIVE (NEGATIVE) 06/21/17 18:50 Urine Bilirubin NEGATIVE (NEGATIVE) 06/21/17 18:50 Urine Urobilinogen 0.2 E.U./dL (0.2 - 1.0) 06/21/17 18:50 Ur Leukocyte Esterase NEGATIVE (NEGATIVE) 06/21/17 18:50 Urine RBC NONE SEEN /hpf (0-5) 06/21/17 18:50 Urine WBC NONE SEEN /hpf (0-5) 06/21/17 18:50 Ur Epithelial Cells NONE SEEN /lpf (FEW) 06/21/17 18:50 Urine Bacteria NONE SEEN /hpf (NONE SEEN) 06/21/17 18:50 Salicylates < 25.0 mg/L (30.0-100.0) L 06/21/17 16:58 Urine Opiates Screen NEGATIVE (NEGATIVE) 06/21/17 18:50 Urine Methadone Screen NEGATIVE (NEGATIVE) 06/21/17 18:50 Acetaminophen < 10.0 ug/mL (10.0-30.0) L 06/21/17 16:58 Ur Barbiturates Screen POSITIVE (NEGATIVE) H 06/21/17 18:50 Ur Tricyclics Screen NEGATIVE (NEGATIVE) 06/21/17 18:50 Ur Phencyclidine Scrn NEGATIVE (NEGATIVE) 06/21/17 18:50 Amphetamines Screen NEGATIVE (NEGATIVE) 06/21/17 18:50 U Methamphetamines Scrn NEGATIVE (NEGATIVE) 06/21/17 18:50 U Benzodiazepines Scrn NEGATIVE (NEGATIVE) 06/21/17 18:50 U Cocaine Metab Screen NEGATIVE (NEGATIVE) 06/21/17 18:50 U Cannabinoids Screen NEGATIVE (NEGATIVE) 06/21/17 18:50 Ethyl Alcohol < 10 mg/dL (0-10) 06/21/17 16:58 RPR NONREACTIVE (NONREACTIVE) 06/21/17 16:58 - Physical Exam Vitals and I&O: Vital Signs Temp 97.6 F 07/02/17 05:31 Pulse 73 07/02/17 09:44 Resp 20 07/02/17 05:31 BP 132/76 07/02/17 09:44 Pulse Ox 97 07/02/17 05:31 Intake & Output 07/01/17 07/02/17 07/02/17 18:59 06:59 18:59 Intake Total 1800 Balance 1800 Intake: Oral 1800 Other: # Voids 4 # Bowel Movements 1 Stool Characteristics Soft Formed Active Medications: Current Medications Acetaminophen (Tylenol) 650 mg PO Q4HR PRN PRN Reason: Pain Stop: 08/22/17 09:04 Al Hydrox/Mg Hydrox/Simethicone (Maalox) 30 ml PO Q4HR PRN PRN Reason: GI DISTRESS Stop: 08/22/17 09:04 Aspirin (Aspirin Chewable) 81 mg PO DAILY [facility] Stop: 08/22/17 08:59 Last Admin: 07/02/17 09:45 Dose: 81 mg Benazepril HCl (Lotensin) 20 mg PO DAILY [facility] Stop: 08/22/17 08:59 Last Admin: 07/02/17 09:44 Dose: 20 mg Cholecalciferol (Vitamin D3) 2,000 iu PO DAILY [facility] Stop: 08/23/17 08:59 Last Admin: 07/02/17 09:45 Dose: 2,000 iu Docusate Sodium (Colace) 100 mg PO DAILY [facility] Stop: 08/22/17 08:59 Last Admin: 07/02/17 09:45 Dose: 100 mg Insulin Aspart (Novolog Insulin Sliding Scale) 0 units SUBQ ACHS [facility] PRN Reason: Protocol Stop: 08/22/17 11:29 Last Admin: 07/02/17 11:39 Dose: Not Given Metformin HCl (Glucophage) 500 mg PO TID [facility] Stop: 08/21/17 13:59 Last Admin: 07/02/17 09:44 Dose: 500 mg Multivitamins/Vitamin C (Theragran) 1 tab PO DAILY [facility] Stop: 08/23/17 08:59 Last Admin: 07/02/17 09:45 Dose: 1 tab Phenytoin (Dilantin) 300 mg PO HS [facility] Stop: 08/22/17 20:59 Last Admin: 07/01/17 20:59 Dose: 300 mg Quetiapine Fumarate (Seroquel) 12.5 mg PO HS [facility] PRN Reason: Protocol Stop: 08/21/17 20:59 Last Admin: 07/01/17 21:00 Dose: 12.5 mg Quetiapine Fumarate (Seroquel) 25 mg PO HS [facility] PRN Reason: Protocol Stop: 08/24/17 20:59 Last Admin: 07/01/17 21:00 Dose: 25 mg Tamsulosin HCl (Flomax) 0.4 mg PO DAILY [facility] Stop: 08/22/17 09:14 Last Admin: 07/02/17 09:44 Dose: 0.4 mg General: Alert, Cooperative, Other (Confused) HEENT: Atraumatic Neck: Supple Cardiovascular: Regular rate Lungs: Clear to auscultation Abdomen: Bowel sounds Extremities: Other (No edema) Neurological: Other (Unstable gait) Skin: Other (Warm and dry) Psych/Mental Status: Other (Awake, alert, confused) - Procedures Procedures: Procedures Procedure Code Date OTHER GROUP THERAPY 94.44 05/02/11 RECREATIONAL THERAPY 93.81 05/02/11 Assessment/Plan - Assessment Assessment: Patient is awake, calm in no acute distress. DX: Increased in agitation, Dementia, Schizophrenia, DM, HTN, CAD, Seizure disorder. - Plan Plan: Patient is continue with SNF medications. He is under Psychiatric care. Nutritional Asmnt/Malnutr-PDOC - Dietary Evaluation Malnutrition Findings (Please click <Entered> for more info): Nutritional Asmnt/Malnutrition Start: 06/22/17 16: 44 Text: Status: Complete Freq: Document 06/22/17 16:44 GSUN (Rec: 06/22/17 17:04 [email or web address]) Nutritional Asmnt/Malnutrition Patient General Information Nutritional Screening Consult Diagnosis Reason for visit: psychosis NOS Pertinent Medical Hx/Surgical Hx ER report: HTN, DM, CAD, CVA/ TIA, seizures, dementia, depression, schizophrenia, bipolar Subjective Information [address] consult for poor PO intake. Visited pt during meal time, pt seen in chair in rec room, had already finished dinner. Per RN notes , pt finished 100% dinner . Spoke to EDITORIAL INTERN, [employer] stated pt with good appetite, unaware of sign of poor PO intake. PT is edentulous, tolerating current diet texture. Pt was pleasant, denied nutritinoal concerns, well dressed, stated food is good. No muscle fat wasting noted. Pt does appeared 147lb, however does not appear less than 5ft at BMI 34/obese. Current Diet Order/ Nutrition Support [id number] Pertinent Medications Colace, Glucophage, Seroquel Pertinent Labs 06/21: A1c 6.1H, glucose 187H Nutritional Hx/Data Height 1.4 m Height (Calculated Centimeters) 139.7 Current Weight (lbs) 66.678 kg Weight (Calculated Kilograms) 66.7 Weight (Calculated Grams) 43450.1 GI Symptoms Food Allergies No Skin Integrity/Comment: Richar Balderas. Skin intact. Current %PO Good (75-100%) Estimated Nutritional Goals BEE in Kcals: Using Current wt Calories/Kcals/Kg CBW 147lb/66.8kg Kcals Calculated 1670-2004kcal (25-30kcal/kg) Protein: Using Current wt Protein Calculated 67g (1g/kg) Fluid: ml 1670-2004ml (1ml/kcal) Nutritional Problem 1. Problem Problem Altered nutrition related laboratory values related to Etiology DM aeb Signs/Symptoms: A1c 6.1H, glucose 187H on adm Intervention/Recommendation Comments 1. Continue with current diet order. Avg PO intake is adequate. Pt is edentulous, monitor tolerance to diet texture. 2. Monitor PO intake. RD receieved consult for poor PO intake. However, pt RN notes and [employer] verbal report, pt has been eating 100% of meals, meeting nutritnioal needs. No difficulties noted. 3. Monitor weight/height. Pt does not appear 4ft 7in at BMI 34/obese status. Expected Outcomes/Goals Expected Outcomes/Goals 1. PO intake to meet at least 75% of estimated nutritinoal needs.
[2017-07-03] MEDS: INSULIN ASPART SLIDING SCALE 100 UNITS/ML UNIT SUBQ SCH ×2 (06:41→20:23)
--- NOTE | 2017-07-03 07:11 | General Progress Note ---
Subjective - Review of Systems Service Date: 07/03/17 Subjective: I am fine Objective - Results Result Diagrams: 06/21/17 16:58 06/21/17 16:58 Recent Labs: Laboratory Last Values WBC 8.6 Th/cmm (4.8-10.8) D 06/21/17 16:58 RBC 4.78 Mil/cmm (3.80-5.80) 06/21/17 16:58 Hgb 14.0 gm/dL (12-16) 06/21/17 16:58 Hct 41.7 % (41.0-60) 06/21/17 16:58 MCV 87.2 fl (80-99) 06/21/17 16:58 MCH 29.2 pg (27.0-31.0) 06/21/17 16:58 MCHC Differential 33.5 pg (28.0-36.0) 06/21/17 16:58 RDW 13.4 % (11.5-20.0) 06/21/17 16:58 Plt Count 208 Th/cmm (150-400) D 06/21/17 16:58 MPV 8.0 fl 06/21/17 16:58 Neutrophils % 59.7 % (40.0-80.0) 06/21/17 16:58 Lymphocytes % 26.7 % (20.0-50.0) 06/21/17 16:58 Monocytes % 10.0 % (2.0-10.0) 06/21/17 16:58 Eosinophils % 3.0 % (0.0-5.0) 06/21/17 16:58 Basophils % 0.6 % (0.0-2.0) 06/21/17 16:58 Sodium 132 mEq/L (136-145) L 06/21/17 16:58 Potassium 4.5 mEq/L (3.5-5.1) 06/21/17 16:58 Chloride 101 mEq/L (98-107) 06/21/17 16:58 Carbon Dioxide 25.9 mEq/L (21.0-31.0) 06/21/17 16:58 Anion Gap 9.6 (7.0-16.0) 06/21/17 16:58 BUN 19 mg/dL (7-25) 06/21/17 16:58 Creatinine 0.7 mg/dL (0.7-1.3) 06/21/17 16:58 Est GFR ( Amer) TNP 06/21/17 16:58 Est GFR (Non-Af Amer) TNP 06/21/17 16:58 BUN/Creatinine Ratio 27.1 06/21/17 16:58 Glucose 187 mg/dL (70-105) H 06/21/17 16:58 POC Glucose 81 MG/DL (70 - 105) 07/03/17 06:38 Hemoglobin A1c % 6.1 % (4.0-6.0) H 06/21/17 16:44 Calcium 9.0 mg/dL (8.6-10.3) 06/21/17 16:58 Total Bilirubin 0.2 mg/dL (0.3-1.0) L 06/21/17 16:58 AST 12 U/L (13-39) L 06/21/17 16:58 ALT 13 U/L (7-52) 06/21/17 16:58 Alkaline Phosphatase 119 U/L (34-104) H 06/21/17 16:58 Total Protein 5.9 gm/dL (6.0-8.3) L 06/21/17 16:58 Albumin 3.8 gm/dL (4.2-5.5) L 06/21/17 16:58 Globulin 2.1 gm/dL 06/21/17 16:58 Albumin/Globulin Ratio 1.8 (1.0-1.8) 06/21/17 16:58 Triglycerides 110 mg/dL (<150) 06/21/17 16:58 Cholesterol 185 mg/dL (<200) 06/21/17 16:58 LDL Cholesterol Direct 123 mg/dL (75-193) 06/21/17 16:58 HDL Cholesterol 48 mg/dL (23-92) 06/21/17 16:58 TSH 1.45 uIU/ml (0.34-5.60) 06/21/17 16:58 Urine Source CLEAN C 06/21/17 18:50 Urine Color YELLOW 06/21/17 18:50 Urine Clarity CLEAR (CLEAR) 06/21/17 18:50 Urine pH 6.0 (4.6 - 8.0) 06/21/17 18:50 Ur Specific [place] 1.010 (1.005-1.030) 06/21/17 18:50 Urine Protein NEGATIVE mg/dL (NEGATIVE) 06/21/17 18:50 Urine Glucose (UA) NEGATIVE mg/dL (NEGATIVE) 06/21/17 18:50 Urine Ketones NEGATIVE mg/dL (NEGATIVE) 06/21/17 18:50 Urine Blood NEGATIVE (NEGATIVE) 06/21/17 18:50 Urine Nitrate NEGATIVE (NEGATIVE) 06/21/17 18:50 Urine Bilirubin NEGATIVE (NEGATIVE) 06/21/17 18:50 Urine Urobilinogen 0.2 E.U./dL (0.2 - 1.0) 06/21/17 18:50 Ur Leukocyte Esterase NEGATIVE (NEGATIVE) 06/21/17 18:50 Urine RBC NONE SEEN /hpf (0-5) 06/21/17 18:50 Urine WBC NONE SEEN /hpf (0-5) 06/21/17 18:50 Ur Epithelial Cells NONE SEEN /lpf (FEW) 06/21/17 18:50 Urine Bacteria NONE SEEN /hpf (NONE SEEN) 06/21/17 18:50 Salicylates < 25.0 mg/L (30.0-100.0) L 06/21/17 16:58 Urine Opiates Screen NEGATIVE (NEGATIVE) 06/21/17 18:50 Urine Methadone Screen NEGATIVE (NEGATIVE) 06/21/17 18:50 Acetaminophen < 10.0 ug/mL (10.0-30.0) L 06/21/17 16:58 Ur Barbiturates Screen POSITIVE (NEGATIVE) H 06/21/17 18:50 Ur Tricyclics Screen NEGATIVE (NEGATIVE) 06/21/17 18:50 Ur Phencyclidine Scrn NEGATIVE (NEGATIVE) 06/21/17 18:50 Amphetamines Screen NEGATIVE (NEGATIVE) 06/21/17 18:50 U Methamphetamines Scrn NEGATIVE (NEGATIVE) 06/21/17 18:50 U Benzodiazepines Scrn NEGATIVE (NEGATIVE) 06/21/17 18:50 U Cocaine Metab Screen NEGATIVE (NEGATIVE) 06/21/17 18:50 U Cannabinoids Screen NEGATIVE (NEGATIVE) 06/21/17 18:50 Ethyl Alcohol < 10 mg/dL (0-10) 06/21/17 16:58 RPR NONREACTIVE (NONREACTIVE) 06/21/17 16:58 - Physical Exam Vitals and I&O: Vital Signs Temp 97.1 F 07/03/17 06:11 Pulse 75 07/03/17 06:11 Resp 19 07/03/17 06:11 BP 109/63 07/03/17 06:11 Pulse Ox 98 07/03/17 06:11 Intake & Output 07/02/17 07/03/17 07/03/17 18:59 06:59 18:59 Intake Total 1800 120 Balance 1800 120 Intake: Oral 1800 120 Other: # Voids 4 3 # Bowel Movements 0 Stool Characteristics Soft Soft Formed Formed Active Medications: Current Medications Acetaminophen (Tylenol) 650 mg PO Q4HR PRN PRN Reason: Pain Stop: 08/22/17 09:04 Al Hydrox/Mg Hydrox/Simethicone (Maalox) 30 ml PO Q4HR PRN PRN Reason: GI DISTRESS Stop: 08/22/17 09:04 Aspirin (Aspirin Chewable) 81 mg PO DAILY [facility] Stop: 08/22/17 08:59 Last Admin: 07/02/17 09:45 Dose: 81 mg Benazepril HCl (Lotensin) 20 mg PO DAILY [facility] Stop: 08/22/17 08:59 Last Admin: 07/02/17 09:44 Dose: 20 mg Cholecalciferol (Vitamin D3) 2,000 iu PO DAILY [facility] Stop: 08/23/17 08:59 Last Admin: 07/02/17 09:45 Dose: 2,000 iu Docusate Sodium (Colace) 100 mg PO DAILY [facility] Stop: 08/22/17 08:59 Last Admin: 07/02/17 09:45 Dose: 100 mg Insulin Aspart (Novolog Insulin Sliding Scale) 0 units SUBQ ACHS [facility] PRN Reason: Protocol Stop: 08/22/17 11:29 Last Admin: 07/03/17 06:41 Dose: Not Given Metformin HCl (Glucophage) 500 mg PO TID [facility] Stop: 08/21/17 13:59 Last Admin: 07/02/17 20:37 Dose: 500 mg Multivitamins/Vitamin C (Theragran) 1 tab PO DAILY [facility] Stop: 08/23/17 08:59 Last Admin: 07/02/17 09:45 Dose: 1 tab Phenytoin (Dilantin) 300 mg PO HS [facility] Stop: 08/22/17 20:59 Last Admin: 07/02/17 20:36 Dose: 300 mg Quetiapine Fumarate (Seroquel) 12.5 mg PO HS [facility] PRN Reason: Protocol Stop: 08/21/17 20:59 Last Admin: 07/02/17 20:49 Dose: 12.5 mg Quetiapine Fumarate (Seroquel) 25 mg PO HS [facility] PRN Reason: Protocol Stop: 08/24/17 20:59 Last Admin: 07/02/17 20:37 Dose: 25 mg Tamsulosin HCl (Flomax) 0.4 mg PO DAILY [facility] Stop: 08/22/17 09:14 Last Admin: 07/02/17 09:44 Dose: 0.4 mg General: Alert, Cooperative, Other (Confused) HEENT: Atraumatic Neck: Supple Cardiovascular: Regular rate Lungs: Clear to auscultation Abdomen: Bowel sounds Extremities: Other (No edema) Neurological: Other (Unstable gait) Skin: Other (Warm and dry) Psych/Mental Status: Other (Awake, alert, confused) - Procedures Procedures: Procedures Procedure Code Date OTHER GROUP THERAPY 94.44 05/02/11 RECREATIONAL THERAPY 93.81 05/02/11 Assessment/Plan - Assessment Assessment: Patient is awake, calm in no acute distress. DX: Increased in agitation, Dementia, Schizophrenia, DM, HTN, CAD, Seizure disorder. - Plan Plan: Patient is continue with SNF medications. He is under Psychiatric care. Nutritional Asmnt/Malnutr-PDOC - Dietary Evaluation Malnutrition Findings (Please click <Entered> for more info): Nutritional Asmnt/Malnutrition Start: 06/22/17 16: 44 Text: Status: Complete Freq: Document 06/22/17 16:44 GSUN (Rec: 06/22/17 17:04 [email or web address]) Nutritional Asmnt/Malnutrition Patient General Information Nutritional Screening Consult Diagnosis Reason for visit: psychosis NOS Pertinent Medical Hx/Surgical Hx ER report: HTN, DM, CAD, CVA/ TIA, seizures, dementia, depression, schizophrenia, bipolar Subjective Information [address] consult for poor PO intake. Visited pt during meal time, pt seen in chair in rec room, had already finished dinner. Per RN notes , pt finished 100% dinner . Spoke to SALON SUPERVISOR, SALON SUPERVISOR stated pt with good appetite, unaware of sign of poor PO intake. PT is edentulous, tolerating current diet texture. Pt was pleasant, denied nutritinoal concerns, well dressed, stated food is good. No muscle fat wasting noted. Pt does appeared 147lb, however does not appear less than 5ft at BMI 34/obese. Current Diet Order/ Nutrition Support [id number] Pertinent Medications Colace, Glucophage, Seroquel Pertinent Labs 06/21: A1c 6.1H, glucose 187H Nutritional Hx/Data Height 1.4 m Height (Calculated Centimeters) 139.7 Current Weight (lbs) 66.678 kg Weight (Calculated Kilograms) 66.7 Weight (Calculated Grams) 58307.1 GI Symptoms Food Allergies No Skin Integrity/Comment: Richar 21. Skin intact. Current %PO Good (75-100%) Estimated Nutritional Goals BEE in Kcals: Using Current wt Calories/Kcals/Kg CBW 147lb/66.8kg Kcals Calculated 1670-2004kcal (25-30kcal/kg) Protein: Using Current wt Protein Calculated 67g (1g/kg) Fluid: ml 1670-2004ml (1ml/kcal) Nutritional Problem 1. Problem Problem Altered nutrition related laboratory values related to Etiology DM aeb Signs/Symptoms: A1c 6.1H, glucose 187H on adm Intervention/Recommendation Comments 1. Continue with current diet order. Avg PO intake is adequate. Pt is edentulous, monitor tolerance to diet texture. 2. Monitor PO intake. RD receieved consult for poor PO intake. However, pt RN notes and SALON SUPERVISOR verbal report, pt has been eating 100% of meals, meeting nutritnioal needs. No difficulties noted. 3. Monitor weight/height. Pt does not appear 4ft 7in at BMI 34/obese status. Expected Outcomes/Goals Expected Outcomes/Goals 1. PO intake to meet at least 75% of estimated nutritinoal needs.
[2017-07-03] MEDS: Multivitamin Tab PO SCH (08:30)
[2017-07-03] MEDS: Aspirin 81mg Chewable Tab PO SCH (08:30)
--- NOTE | 2017-07-03 23:49 | Progress Notes ---
DATE: 07/03/2017 PSYCHIATRIC PROGRESS NOTE TIME PATIENT SEEN: Staff was spoken to. The patient is interviewed. Mood is noted to be less irritable. Affect is appropriate. The patient's insight and judgment at this time are noted to be still impaired. The patient is confused and pacing on the unit. The patient, however, is denying any command hallucinations. No side effects to medications are noted at this time. ASSESSMENT: The patient is still paranoid and confused. PLAN: To continue the patient with supportive therapy. I encouraged the patient to verbalize the concerns rather than to act out. JOB# [id number]
[2017-07-04] MEDS: INSULIN ASPART SLIDING SCALE 100 UNITS/ML UNIT SUBQ SCH ×2 (06:35→15:37)
--- NOTE | 2017-07-04 09:08 | General Progress Note ---
Subjective - Review of Systems Service Date: 07/04/17 Subjective: I am fine Objective - Results Result Diagrams: 06/21/17 16:58 06/21/17 16:58 Recent Labs: Laboratory Last Values WBC 8.6 Th/cmm (4.8-10.8) D 06/21/17 16:58 RBC 4.78 Mil/cmm (3.80-5.80) 06/21/17 16:58 Hgb 14.0 gm/dL (12-16) 06/21/17 16:58 Hct 41.7 % (41.0-60) 06/21/17 16:58 MCV 87.2 fl (80-99) 06/21/17 16:58 MCH 29.2 pg (27.0-31.0) 06/21/17 16:58 MCHC Differential 33.5 pg (28.0-36.0) 06/21/17 16:58 RDW 13.4 % (11.5-20.0) 06/21/17 16:58 Plt Count 208 Th/cmm (150-400) D 06/21/17 16:58 MPV 8.0 fl 06/21/17 16:58 Neutrophils % 59.7 % (40.0-80.0) 06/21/17 16:58 Lymphocytes % 26.7 % (20.0-50.0) 06/21/17 16:58 Monocytes % 10.0 % (2.0-10.0) 06/21/17 16:58 Eosinophils % 3.0 % (0.0-5.0) 06/21/17 16:58 Basophils % 0.6 % (0.0-2.0) 06/21/17 16:58 Sodium 132 mEq/L (136-145) L 06/21/17 16:58 Potassium 4.5 mEq/L (3.5-5.1) 06/21/17 16:58 Chloride 101 mEq/L (98-107) 06/21/17 16:58 Carbon Dioxide 25.9 mEq/L (21.0-31.0) 06/21/17 16:58 Anion Gap 9.6 (7.0-16.0) 06/21/17 16:58 BUN 19 mg/dL (7-25) 06/21/17 16:58 Creatinine 0.7 mg/dL (0.7-1.3) 06/21/17 16:58 Est GFR ( Amer) TNP 06/21/17 16:58 Est GFR (Non-Af Amer) TNP 06/21/17 16:58 BUN/Creatinine Ratio 27.1 06/21/17 16:58 Glucose 187 mg/dL (70-105) H 06/21/17 16:58 POC Glucose 104 MG/DL (70 - 105) 07/03/17 20:17 Hemoglobin A1c % 6.1 % (4.0-6.0) H 06/21/17 16:44 Calcium 9.0 mg/dL (8.6-10.3) 06/21/17 16:58 Total Bilirubin 0.2 mg/dL (0.3-1.0) L 06/21/17 16:58 AST 12 U/L (13-39) L 06/21/17 16:58 ALT 13 U/L (7-52) 06/21/17 16:58 Alkaline Phosphatase 119 U/L (34-104) H 06/21/17 16:58 Total Protein 5.9 gm/dL (6.0-8.3) L 06/21/17 16:58 Albumin 3.8 gm/dL (4.2-5.5) L 06/21/17 16:58 Globulin 2.1 gm/dL 06/21/17 16:58 Albumin/Globulin Ratio 1.8 (1.0-1.8) 06/21/17 16:58 Triglycerides 110 mg/dL (<150) 06/21/17 16:58 Cholesterol 185 mg/dL (<200) 06/21/17 16:58 LDL Cholesterol Direct 123 mg/dL (75-193) 06/21/17 16:58 HDL Cholesterol 48 mg/dL (23-92) 06/21/17 16:58 TSH 1.45 uIU/ml (0.34-5.60) 06/21/17 16:58 Urine Source CLEAN C 06/21/17 18:50 Urine Color YELLOW 06/21/17 18:50 Urine Clarity CLEAR (CLEAR) 06/21/17 18:50 Urine pH 6.0 (4.6 - 8.0) 06/21/17 18:50 Ur Specific [place] 1.010 (1.005-1.030) 06/21/17 18:50 Urine Protein NEGATIVE mg/dL (NEGATIVE) 06/21/17 18:50 Urine Glucose (UA) NEGATIVE mg/dL (NEGATIVE) 06/21/17 18:50 Urine Ketones NEGATIVE mg/dL (NEGATIVE) 06/21/17 18:50 Urine Blood NEGATIVE (NEGATIVE) 06/21/17 18:50 Urine Nitrate NEGATIVE (NEGATIVE) 06/21/17 18:50 Urine Bilirubin NEGATIVE (NEGATIVE) 06/21/17 18:50 Urine Urobilinogen 0.2 E.U./dL (0.2 - 1.0) 06/21/17 18:50 Ur Leukocyte Esterase NEGATIVE (NEGATIVE) 06/21/17 18:50 Urine RBC NONE SEEN /hpf (0-5) 06/21/17 18:50 Urine WBC NONE SEEN /hpf (0-5) 06/21/17 18:50 Ur Epithelial Cells NONE SEEN /lpf (FEW) 06/21/17 18:50 Urine Bacteria NONE SEEN /hpf (NONE SEEN) 06/21/17 18:50 Salicylates < 25.0 mg/L (30.0-100.0) L 06/21/17 16:58 Urine Opiates Screen NEGATIVE (NEGATIVE) 06/21/17 18:50 Urine Methadone Screen NEGATIVE (NEGATIVE) 06/21/17 18:50 Acetaminophen < 10.0 ug/mL (10.0-30.0) L 06/21/17 16:58 Ur Barbiturates Screen POSITIVE (NEGATIVE) H 06/21/17 18:50 Ur Tricyclics Screen NEGATIVE (NEGATIVE) 06/21/17 18:50 Ur Phencyclidine Scrn NEGATIVE (NEGATIVE) 06/21/17 18:50 Amphetamines Screen NEGATIVE (NEGATIVE) 06/21/17 18:50 U Methamphetamines Scrn NEGATIVE (NEGATIVE) 06/21/17 18:50 U Benzodiazepines Scrn NEGATIVE (NEGATIVE) 06/21/17 18:50 U Cocaine Metab Screen NEGATIVE (NEGATIVE) 06/21/17 18:50 U Cannabinoids Screen NEGATIVE (NEGATIVE) 06/21/17 18:50 Ethyl Alcohol < 10 mg/dL (0-10) 06/21/17 16:58 RPR NONREACTIVE (NONREACTIVE) 06/21/17 16:58 - Physical Exam Vitals and I&O: Vital Signs Temp 98.3 F 07/04/17 06:21 Pulse 78 07/04/17 06:21 Resp 20 07/04/17 06:21 BP 126/73 07/04/17 06:21 Pulse Ox 98 07/04/17 06:21 Intake & Output 07/03/17 07/04/17 07/04/17 18:59 06:59 18:59 Intake Total 400 600 Balance 400 600 Intake: Oral 400 600 Other: # Voids 4 2 # Bowel Movements 2 0 Stool Characteristics Soft Soft Formed Formed Active Medications: Current Medications Acetaminophen (Tylenol) 650 mg PO Q4HR PRN PRN Reason: Pain Stop: 08/22/17 09:04 Al Hydrox/Mg Hydrox/Simethicone (Maalox) 30 ml PO Q4HR PRN PRN Reason: GI DISTRESS Stop: 08/22/17 09:04 Aspirin (Aspirin Chewable) 81 mg PO DAILY [facility] Stop: 08/22/17 08:59 Last Admin: 07/03/17 08:30 Dose: 81 mg Benazepril HCl (Lotensin) 20 mg PO DAILY [facility] Stop: 08/22/17 08:59 Last Admin: 07/03/17 08:30 Dose: 20 mg Cholecalciferol (Vitamin D3) 2,000 iu PO DAILY [facility] Stop: 08/23/17 08:59 Last Admin: 07/03/17 08:30 Dose: 2,000 iu Docusate Sodium (Colace) 100 mg PO DAILY [facility] Stop: 08/22/17 08:59 Last Admin: 07/03/17 08:30 Dose: 100 mg Insulin Aspart (Novolog Insulin Sliding Scale) 0 units SUBQ ACHS [facility] PRN Reason: Protocol Stop: 08/22/17 11:29 Last Admin: 07/04/17 06:35 Dose: Not Given Metformin HCl (Glucophage) 500 mg PO TID [facility] Stop: 08/21/17 13:59 Last Admin: 07/03/17 20:32 Dose: 500 mg Multivitamins/Vitamin C (Theragran) 1 tab PO DAILY [facility] Stop: 08/23/17 08:59 Last Admin: 07/03/17 08:30 Dose: 1 tab Phenytoin (Dilantin) 300 mg PO HS [facility] Stop: 08/22/17 20:59 Last Admin: 07/03/17 20:32 Dose: 300 mg Quetiapine Fumarate (Seroquel) 12.5 mg PO HS [facility] PRN Reason: Protocol Stop: 08/21/17 20:59 Last Admin: 07/03/17 20:33 Dose: 12.5 mg Quetiapine Fumarate (Seroquel) 25 mg PO HS [facility] PRN Reason: Protocol Stop: 08/24/17 20:59 Last Admin: 07/03/17 20:33 Dose: 25 mg Tamsulosin HCl (Flomax) 0.4 mg PO DAILY [facility] Stop: 08/22/17 09:14 Last Admin: 07/03/17 08:30 Dose: 0.4 mg General: Alert, Cooperative, Other (Confused) HEENT: Atraumatic Neck: Supple Cardiovascular: Regular rate Lungs: Clear to auscultation Abdomen: Bowel sounds Extremities: Other (No edema) Neurological: Other (Unstable gait) Skin: Other (Warm and dry) Psych/Mental Status: Other (Awake, alert, confused) - Procedures Procedures: Procedures Procedure Code Date OTHER GROUP THERAPY 94.44 05/02/11 RECREATIONAL THERAPY 93.81 05/02/11 Assessment/Plan - Assessment Assessment: Patient is awake, calm in no acute distress. DX: Increased in agitation, Dementia, Schizophrenia, DM, HTN, CAD, Seizure disorder. - Plan Plan: Patient is continue with SNF medications. He is under Psychiatric care. Patient improving Nutritional Asmnt/Malnutr-PDOC - Dietary Evaluation Malnutrition Findings (Please click <Entered> for more info): Nutritional Asmnt/Malnutrition Start: 06/22/17 16: 44 Text: Status: Complete Freq: Document 06/22/17 16:44 GSUN (Rec: 06/22/17 17:04 [email or web address]) Nutritional Asmnt/Malnutrition Patient General Information Nutritional Screening Consult Diagnosis Reason for visit: psychosis NOS Pertinent Medical Hx/Surgical Hx ER report: HTN, DM, CAD, CVA/ TIA, seizures, dementia, depression, schizophrenia, bipolar Subjective Information [address] consult for poor PO intake. Visited pt during meal time, pt seen in chair in rec room, had already finished dinner. Per RN notes , pt finished 100% dinner . Spoke to TRANSFER WORKER, TRANSFER WORKER stated pt with good appetite, unaware of sign of poor PO intake. PT is edentulous, tolerating current diet texture. Pt was pleasant, denied nutritinoal concerns, well dressed, stated food is good. No muscle fat wasting noted. Pt does appeared 147lb, however does not appear less than 5ft at BMI 34/obese. Current Diet Order/ Nutrition Support [id number] Pertinent Medications Colace, Glucophage, Seroquel Pertinent Labs 06/21: A1c 6.1H, glucose 187H Nutritional Hx/Data Height 1.4 m Height (Calculated Centimeters) 139.7 Current Weight (lbs) 66.678 kg Weight (Calculated Kilograms) 66.7 Weight (Calculated Grams) 66870.1 GI Symptoms Food Allergies No Skin Integrity/Comment: Richar 21. Skin intact. Current %PO Good (75-100%) Estimated Nutritional Goals BEE in Kcals: Using Current wt Calories/Kcals/Kg CBW 147lb/66.8kg Kcals Calculated 1670-2004kcal (25-30kcal/kg) Protein: Using Current wt Protein Calculated 67g (1g/kg) Fluid: ml 1670-2004ml (1ml/kcal) Nutritional Problem 1. Problem Problem Altered nutrition related laboratory values related to Etiology DM aeb Signs/Symptoms: A1c 6.1H, glucose 187H on adm Intervention/Recommendation Comments 1. Continue with current diet order. Avg PO intake is adequate. Pt is edentulous, monitor tolerance to diet texture. 2. Monitor PO intake. RD receieved consult for poor PO intake. However, pt RN notes and TRANSFER WORKER verbal report, pt has been eating 100% of meals, meeting nutritnioal needs. No difficulties noted. 3. Monitor weight/height. Pt does not appear 4ft 7in at BMI 34/obese status. Expected Outcomes/Goals Expected Outcomes/Goals 1. PO intake to meet at least 75% of estimated nutritinoal needs.
[2017-07-04] MEDS: Aspirin 81mg Chewable Tab PO SCH (10:01)
[2017-07-04] MEDS: Multivitamin Tab PO SCH (10:01)
--- NOTE | 2017-07-05 02:35 | Progress Notes ---
DATE: 07/04/2017 PSYCHIATRIC PROGRESS NOTE SUBJECTIVE: Staff was spoken to. The patient is interviewed. Mood is noted to be anxious. Affect is appropriate. The patient's insight and judgment are improving. Impulse control seems to be fair. No side effects to the medications are noted. The patient has been pacing on the unit. The patient has paranoia, but denies any command hallucinations. ASSESSMENT: The patient is stabilizing, not presenting as a threat to self or others. PLAN: To continue the patient with the supportive therapy and discharge the patient to [facility] for further followup. JOB# [id number]
--- NOTE | 2017-07-05 15:47 | Discharge Summary ---
DATE OF DISCHARGE: 07/04/2017 IDENTIFYING DATA: The patient is a 76-year-old male, resident of [facility]. Information obtained by directly interviewing the patient as well as reviewing the admission papers disposition. JUSTIFICATION OF HOSPITALIZATION: The patient is admitted on a voluntary basis in view of his agitated behavior. CHIEF COMPLAINT: "I can't see, something is going wrong." DIAGNOSES AT THE TIME OF ADMISSION: 1. Psychotic disorder, not otherwise specified. 2. Dementia and behavioral change, secondary trait. HISTORY OF PRESENT ILLNESS: Please refer to the 06/22/2017 dictation done by me. Physical examination at the time of admission was done by Dr. Li and is significant for hypertension, coronary artery disease, seizure disorder. HOSPITAL COURSE AND RESPONSE TO TREATMENT: Blood work done at the time of the hospitalization has been reviewed by Dr. Li. HOSPITAL COURSE AND RESPONSE TO TREATMENT: The patient has been started on the metformin for his blood sugar and quetiapine 12.5 mg, which was gradually increased to 25 mg at bedtime. With these medications, the patient has been observed and was noted to be doing fairly well and patient was finally discharged on 07/04/2017 with the recommendation that he is going to be seeking treatment on an outpatient basis. MENTAL STATUS EXAMINATION: At the time of discharge, the patient's mood, to be anxious. Affect is appropriate. Not suicidal or homicidal. Insight and judgment noted to be improving. Impulse control seems to be fair. No side effects to the medications are noted. The patient has been able to verbalize the concerns rather than to act out at the time of discharge. DIAGNOSES AT THE TIME OF DISCHARGE: AXIS I: A. Psychotic disorder, not otherwise specified. B. Dementia and behavioral change, secondary trait. AXIS II: None. AXIS III: Hypertension, coronary artery disease. AFTERCARE PLAN: The patient is discharged to [facility] for further followup. PROGNOSIS: At the time of discharge noted to be fair with the treatment. JOB# [id number]
== END 2017-07-04 15:45 | disposition home or self-care (01) | DRG 885 ==
LOC: ER 16:29 → GERO 19:43
PROVIDERS: ADMIT Psychiatry & Neurology Psychiatry; ATTEND Psychiatry & Neurology Psychiatry
DX: F29 Unspecified psychosis not due to a substance or known physiological condition (principal); F03.91 Unspecified dementia, unspecified severity, with behavioral disturbance; I50.9 Heart failure, unspecified; I11.0 Hypertensive heart disease with heart failure; E11.9 Type 2 diabetes mellitus without complications; F20.9 Schizophrenia, unspecified; I25.10 Atherosclerotic heart disease of native coronary artery without angina pectoris; G40.909 Epilepsy, unspecified, not intractable, without status epilepticus; F31.9 Bipolar disorder, unspecified; Z79.82 Long term (current) use of aspirin; Z79.4 Long term (current) use of insulin; Z86.73 Personal history of transient ischemic attack (TIA), and cerebral infarction without residual deficits; Z83.3 Family history of diabetes mellitus; Z82.49 Family history of ischemic heart disease and other diseases of the circulatory system
CPT/HCPCS: 36415-UA; 80053-TC; 80061-TC; 80307; 80320-TC; 80329-TC; 81001-TC; 82948-90; 83036-90; 84443-TC; 85025-TC; 86592-TC; 90899; 93005; G0410; J1200; J1630; J1815; J2060; Z7610

== ENCOUNTER 2018-03-29 17:20 | Inpatient (IN) | payer MEDICARE, MEDICAID ==
--- NOTE | 2018-03-29 18:05 | ED Physician Chart ---
ED Chief Complaint/HPI - Patient Information Date Seen:: 03/29/18 Time Seen:: 17:55 Chief Complaint:: combative and disruptive behavior History of Present Illness:: Patient has been exhibiting combative and disruptive behavior at his long term facility. Allergies:: Allergies Allergy/AdvReac Type Severity Reaction Status Date / Time No Known Allergies Allergy Verified 05/03/16 15:51 Vitals:: Vital Signs - 8 hr 03/29/18 17:51 Temp 97.9 F HR 85 RR 18 BP 154/81 O2 Sat % 97 Historian:: Patient Review:: Transfer documents Reviewed ED Past Medical History - Past Medical History Obtainable: Yes Past Medical History: HTN, DM, Dyslipidemia, Arthritis, Other (gastritis; seizure disorder; cerebrovascular disease polyneuropathy; osteoporosis; atherosclerotic heart disease; psychosis; for lipidemia; dementia; hyperstatic hypertrophy) Family History: Other (not available) Social History: Care Facility Surgical History: other (not available) Psychiatricy History: Dementia, Other (psychosis) Medication: Reviewed Family Medical History - Family Member family History Unknown: Yes Ethnicity: Unknown Living Status: Unknown Hx Family Cancer: (unknown) Hx Family Coronary Artery Disease: (unknown) Hx Family Congestive Heart Failure: (unknown) Hx Family Hypertension: (unknown) Hx Family Stroke: (unknown) Hx Family Diabetes: (unknown) Hx Family Seizures: (unknown) Hx Family Dementia: (unknown) Hx Family AIDS: (unknown) Hx Family HIV: No Hx Family COPD: (unknown) Hx Family Hepatitis: (unknown) Hx Family Psychiatric Problems: (unknown) Hx Family Tuberculosis: (unknown) ED Physical Exam - Physical Examination General/Constitutional: Awake, Well-developed, well-nourished, Alert Other Gen/Cons comments:: Alert and confused; does not know the correct year Head: Atraumatic Eyes: PERRL Other Eyes comments:: Yellow green conjunctival discharge right eye Skin: Nl inspection ENMT: External ears, nose nl Other ENMT comments:: Edentulous Neck: No nuchal rigidity Respiratory: Nl effort/Exclusion, Clear to Auscultation, No Wheeze/Rhonchi/Rales Cardio Vascular: RRR, No murmur, gallop, rubs GI: No tenderness/rebounding/guarding, No organomegaly, No hernia, Normal BS's Extremities: No edema Neuro/Psych: No focal deficits ED Labs/Radiology/EKG Results - Lab Results Results: Laboratory Results - last 24 hr 03/29/18 03/29/18 18:05 18:05 WBC 9.4 RBC 5.15 Hgb 14.8 Hct 44.1 MCV 85.5 MCH 28.8 MCHC Differential 33.7 RDW 13.4 Plt Count 203 MPV 8.1 Neutrophils % 58.1 Lymphocytes % 27.3 Monocytes % 10.4 H Eosinophils % 3.5 Basophils % 0.7 Sodium 137 Potassium 4.6 Chloride 104 Carbon Dioxide 23.5 Anion Gap 14.1 BUN 15 Creatinine 0.7 Est GFR ( Amer) TNP Est GFR (Non-Af Amer) TNP BUN/Creatinine Ratio 21.4 Glucose 74 Calcium 9.7 Total Bilirubin 0.2 L AST 18 ALT 16 Alkaline Phosphatase 163 H Total Protein 6.9 Albumin 4.3 Globulin 2.6 Albumin/Globulin Ratio 1.7 Triglycerides 177 H Cholesterol 208 H LDL Cholesterol Direct 143 HDL Cholesterol 47 Salicylates < 25.0 L Acetaminophen < 10.0 L Ethyl Alcohol < 10 - EKG Interpretations Rate & Rhythm: normal sinus rhythm with a rate of 90 [place]: normal axis ED Septic Shock - . Is Septic Shock (SBP<90, OR Lactate>4 mmol\L) present?: No - <6hrs of presentation: Vital Signs: Vital Signs - 8 hr 03/29/18 17:51 Temp 97.9 F HR 85 RR 18 BP 154/81 O2 Sat % 97 ED Reassessment (Disposition) - Diagnosis Diagnosis:: Dementia with combative behavior - Patient Disposition Admitted to:: [facility] Admitting Medical Physician:: Luis Eduardo Figueroa Admitting Psych Physician:: Sourav Young Condition at Disposition:: Stable
[2018-03-29 18:14] LABS: % BASOPHILS 0.7 % (0.0-2.0); % EOSINOPHILS 3.5 % (0.0-5.0); % LYMPHOCYTES 27.3 % (20.0-50.0); % MONOCYTES 10.4 % (2.0-10.0); % NEUTROPHILS 58.1 % (40.0-80.0); BASOPHILE ABSOLUTE 0.1 Th/cumm (0-0.2); EOSINOPHILE ABSOLUTE 0.3 Th/cmm (0.1-0.4); HEMATOCRIT 44.1 % (41.0-60); HEMOGLOBIN 14.8 gm/dL (12-16); LYMPHOCYTE ABSOLUTE 2.6 Th/cmm (1.5-3.0); MEAN CELL VOLUME 85.5 fl (80-99); MEAN CORPUSCULAR HEMOGLOBIN 28.8 pg (27.0-31.0); MEAN CORPUSCULAR HGB CONC 33.7 pg (28.0-36.0); MEAN PLATELET VOLUME 8.1 fl; NEUTROPHILE ABSOLUTE 5.4 Th/cmm (1.8-8.0); PLATELET COUNT 203 Th/cmm (150-400); RED BLOOD COUNT 5.15 Mil/cmm (3.80-5.80); RED CELL DISTRIBUTION WIDTH 13.4 % (11.5-20.0); WHITE BLOOD COUNT 9.4 Th/cmm (4.8-10.8)
[2018-03-29 18:34] LABS: ACETAMINOPHEN < 10.0 ug/mL (10.0-30.0); ALB/GLOB RATIO 1.7 (1.0-1.8); ALBUMIN 4.3 gm/dL (4.2-5.5); ALKALINE PHOSPHATASE 163 U/L (34-104); ANION GAP 14.1 (7.0-16.0); BILIRUBIN,TOTAL 0.2 mg/dL (0.3-1.0); BUN - UREA NITROGEN 15 mg/dL (7-25); CALCIUM SERUM 9.7 mg/dL (8.6-10.3); CARBON DIOXIDE 23.5 mEq/L (21.0-31.0); CHLORIDE 104 mEq/L (98-107); CHOLESTEROL 208 mg/dL (<200); CREATININE - SERUM 0.7 mg/dL (0.7-1.3); GLUCOSE 74 mg/dL (70-105); HDL -HIGH DENSITY LIPOPROTEIN 47 mg/dL (23-92); POTASSIUM SERUM 4.6 mEq/L (3.5-5.1); SALICYLATES (ASPIRIN) < 25.0 mg/L (30.0-100.0); SGOT 18 U/L (13-39); SGPT/ALT 16 U/L (7-52); SODIUM SERUM 137 mEq/L (136-145); TOTAL PROTEIN,SERUM 6.9 gm/dL (6.0-8.3); TRIGLYCERIDES 177 mg/dL (<150)
[2018-03-29 20:11] VITALS: BP 155/80
[2018-03-29 21:25] LABS: A1C % 6.4 % (4.0-6.0)
[2018-03-29] MEDS ORDERED: Magnesium Hydroxide (MOM) 30 mL UDC PO PRN (21:55)
[2018-03-30] MEDS: INSULIN ASPART SLIDING SCALE 100 UNITS/ML UNIT SUBQ SCH ×2 (08:48→16:43)
[2018-03-30] MEDS ORDERED: INSULIN ASPART SLIDING SCALE 100 UNITS/ML UNIT SUBQ SCH (09:00)
--- NOTE | 2018-03-30 09:21 | History and Physical ---
History of Present Illness - HPI Chief Complaint: Sent to emergency room for evaluation of increasing agitation and aggressive behavior. HPI: 77-year-old resident of care home has psychiatric history, Alzheimer's dementia along with multiple medical problem sent to emergency room after patient was noted to have aggressive behavior and agitation at care home. After being ordered by emergency room MD patient is admitted to [facility] unit for further management. I have been asked this patient's to manage medical problem. Vital Signs: Last Vital Signs Temp 98.0 F 03/30/18 06:57 Pulse 83 03/30/18 06:57 Resp 19 03/30/18 06:57 BP 132/81 03/30/18 06:57 Pulse Ox 98 03/30/18 06:57 Past Medical History Cardiovascular: Report: CAD Pulmonary: Report: COPD FROG CATCHER: Report: Dementia, Seizure GI: Report: Gastritis Psych: Report: Psychosis Musculoskeletal: Report: Osteoarthritis Rheumatologic: Report: No pertinent Hx Infectious Disease: Report: No Pertinent Hx Renal/: Report: Benign Prostatic Enlarg, Urinary Incontinence Endocrine: Report: Diabetes Dermatology: Report: No Pertinent Hx Family Medical History - Family Member family History Unknown: Yes Ethnicity: Unknown Living Status: Unknown Hx Family Cancer: (unknown) Hx Family Coronary Artery Disease: (unknown) Hx Family Congestive Heart Failure: (unknown) Hx Family Hypertension: Yes (unknown) Hx Family Stroke: No (unknown) Hx Family Diabetes: Yes (unknown) Hx Family Seizures: No (unknown) Hx Family Dementia: No (unknown) Hx Family AIDS: (unknown) Hx Family HIV: No Hx Family COPD: No (unknown) Hx Family Hepatitis: No (unknown) Hx Family Psychiatric Problems: (unknown) Hx Family Tuberculosis: (unknown) Social History Smoke: No Alcohol: None Drugs: None Lives: Retirement Domestic Violence: Negative - Medications Home Medications: Home Medication Medication Instructions Recorded Type Glipizide 5 mg PO BID 03/29/18 History Insulin Aspart Sliding Scale See Protocol SUBQ BID 03/29/18 History [NovoLOG INSULIN SLIDING SCALE] Acetaminophen [Tylenol] 650 mg PO Q4HR PRN tab 04/09/18 Rx Aspirin [Aspirin Chewable] 81 mg PO DAILY ctb 04/09/18 Rx Benazepril [Lotensin] 20 mg PO DAILY tab 04/09/18 Rx Cholecalciferol (Vit D3) [Vitamin 2,000 iu PO BID tab 04/09/18 Rx D3] Docusate Sodium [Colace] 100 mg PO BID cap 04/09/18 Rx Insulin Aspart Sliding Scale See Protocol SUBQ BIDAC unit 04/09/18 Rx [NovoLOG INSULIN SLIDING SCALE] Magnesium Hydroxide [Milk of 30 ml PO DAILY PRN udc 04/09/18 Rx Magnesia] Multivitamin w/ Minerals 1 tab PO DAILY tab 04/09/18 Rx [Theragran M] Phenytoin [Dilantin*] 300 mg PO HS cer 04/09/18 Rx QUEtiapine Fumarate [SEROquel] 25 mg PO HS tab 04/09/18 Rx Tamsulosin [Flomax] 0.4 mg PO HS cap 04/09/18 Rx metFORMIN [Glucophage] 850 mg PO TID tab 04/09/18 Rx - Allergies Allergies/Adverse Reactions: Allergies Allergy/AdvReac Type Severity Reaction Status Date / Time No Known Allergies Allergy Verified 05/03/16 15:51 Review of Systems - Review of Systems Constitutional: Report: No Significant Eyes: Report: No Significant ENT: Report: No Significant Respiratory: Report: No Significant Gastrointestinal: Report: No Significant Genitourinary: Report: No Significant Musculoskeletal: Report: No Significant Skin: Report: No Significant Neurological: Report: No Significant Physical Exam - Physical Exam HEENT: Report: Pharnyx within normal limits, Pale Conjunctiva Neck: Report: Within normal limits Cardiovascular Systems: Report: Regular, Rate and Rhythm, Systolic Murmur Respiratory: Report: Breath Sounds are within normal limits, Clear to Auscultation of lung garibay, Chest is non-tender to palpation. Abdomen: Report: Non-tender to palpation, Bowel Sounds are within normal limits Back: Report: Inspection of back is within normal limits. Extremities: Report: Non-tender to palpation., No pedal edema was noted on inspection Skin: Report: Color of skin is within normal limits Neuro/Psych: Report: CN II-XII intact, No motor deficit, No sensory deficit, No new focal deficits - Lab Results All Lab Results last 24 hours: Laboratory Results - last 24 hr 03/29/18 03/29/18 03/29/18 18:05 18:05 18:05 WBC 9.4 RBC 5.15 Hgb 14.8 Hct 44.1 MCV 85.5 MCH 28.8 MCHC Differential 33.7 RDW 13.4 Plt Count 203 MPV 8.1 Neutrophils % 58.1 Lymphocytes % 27.3 Monocytes % 10.4 H Eosinophils % 3.5 Basophils % 0.7 Sodium 137 Potassium 4.6 Chloride 104 Carbon Dioxide 23.5 Anion Gap 14.1 BUN 15 Creatinine 0.7 Est GFR ( Amer) TNP Est GFR (Non-Af Amer) TNP BUN/Creatinine Ratio 21.4 Glucose 74 POC Glucose Hemoglobin A1c % 6.4 H Calcium 9.7 Total Bilirubin 0.2 L AST 18 ALT 16 Alkaline Phosphatase 163 H Total Protein 6.9 Albumin 4.3 Globulin 2.6 Albumin/Globulin Ratio 1.7 Triglycerides 177 H Cholesterol 208 H LDL Cholesterol Direct 143 HDL Cholesterol 47 TSH Salicylates < 25.0 L Acetaminophen < 10.0 L Phenytoin Ethyl Alcohol < 10 03/29/18 03/29/18 03/30/18 18:05 18:05 08:01 WBC RBC Hgb Hct MCV MCH MCHC Differential RDW Plt Count MPV Neutrophils % Lymphocytes % Monocytes % Eosinophils % Basophils % Sodium Potassium Chloride Carbon Dioxide Anion Gap BUN Creatinine Est GFR ( Amer) Est GFR (Non-Af Amer) BUN/Creatinine Ratio Glucose POC Glucose 227 H Hemoglobin A1c % Calcium Total Bilirubin AST ALT Alkaline Phosphatase Total Protein Albumin Globulin Albumin/Globulin Ratio Triglycerides Cholesterol LDL Cholesterol Direct HDL Cholesterol TSH 2.47 Salicylates Acetaminophen Phenytoin 8.3 L Ethyl Alcohol - Assessment Assessment: Current Active Problems Problem Status Onset DISRUPTIVE AND COMBATIVE BEHAVIOR Acute Coronary artery disease. Hypertension. Hyperlipidemia. BPH. Seizure disorder. Psychotic disorder. Urinary incontinence Diffuse DJD. Fall risk. Decline in self-care mobility - Plan Plan: Psychiatric evaluation and management deferred to psychiatrist. Medication management. General nursing care. Nutritional support. Follow lab. Diabetes management. Symptoms management. Avoid bladder outlet obstruction. Seizure medication. Seizure precautions. Continue current treatment plan as ordered. Care plan reviewed and discussed with staff.
[2018-03-30] MEDS: Aspirin 81mg Chewable Tab PO SCH (09:24)
[2018-03-30] MEDS: Multivitamin w/ Minerals Tab PO SCH (09:25)
--- NOTE | 2018-03-31 06:23 | Psychiatric Evaluation ---
DATE OF SERVICE: 03/29/2018 IDENTIFYING DATA: Staff was spoken to. The patient is interviewed. JUSTIFICATION FOR HOSPITALIZATION: The patient is admitted here for aggressive behavior. CHIEF COMPLAINT: "I don't care." HISTORY OF PRESENT ILLNESS: This patient is a 77-year-old male, resident of [facility] in [place]. Information obtained by directly interviewing the patient as well as reviewing the admission papers. The patient is reported to be acting out and has been acting very aggressive. The patient could not be contained. The patient has no insight into his illness. The patient is getting easily agitated, when I tried to get the information, the patient is stating that he did not care. The patient is spoken through a Beninese speaking fish and game club manager. The patient is paranoid at this time, but denies any command hallucinations. PAST PSYCHIATRIC HISTORY: Please refer to the above. The patient was hospitalized here under my care in 06/2017. MEDICAL HISTORY: Physical examination is requested by Dr. Figueroa. SUBSTANCE ABUSE HISTORY: None. PHYSICAL OR SEXUAL ABUSE HISTORY: None. LEGAL PROBLEMS: None at this time. STRENGTH AND ASSETS: The patient is motivated for treatment. MENTAL STATUS EXAMINATION: The patient is a 77-year-old, looking his stated age, superficially cooperative. Eye contact is poor. Mood is noted to be irritable. Affect is constricted. The patient has paranoia, but denies any command hallucinations. The patient has poor short-term as well as long-term memory deficits. DIAGNOSTIC IMPRESSION: AXIS I: Psychotic disorder, not otherwise specified. AXIS IB: Dementia and behavioral change, secondary trait. IMMEDIATE TREATMENT PLAN: The patient is going to be observed on inpatient unit, provided with supportive psychotherapy. The patient is going to be closely monitored, will be encouraged to participate in the groups and verbalize the concerns. The patient is going to be started with the 12.5 mg of the Seroquel at nighttime to help him with the agitation and psychosis. ESTIMATED LENGTH OF STAY: 5-7 days. DISCHARGE CRITERIA: When he no longer is a threat to self or others and be able to cope up with the stress. JOB# [id number]
[2018-03-31] MEDS: INSULIN ASPART SLIDING SCALE 100 UNITS/ML UNIT SUBQ SCH ×2 (06:37→16:33)
[2018-03-31] MEDS: Multivitamin w/ Minerals Tab PO SCH (08:35)
[2018-03-31] MEDS: Aspirin 81mg Chewable Tab PO SCH (08:35)
--- NOTE | 2018-03-31 12:07 | Consultation ---
DATE OF CONSULTATION: 03/31/2018 REQUESTING PHYSICIAN: Sourav Young MD TYPE OF CONSULTATION: Psychology. HISTORY OF PRESENT ILLNESS: The patient is a 77-year-old male. The patient is known to this global technical writer from a previous hospitalization. The following is by record review and the patient's self-report. The patient is a resident of [facility] and is being admitted for aggressive behavior. The staff at the patient's facility report the patient had been getting very aggressive, acting out and that his behavior was uncontainable. Upon interview, the patient is easily agitated. The patient is seen with a Divehi speaking SENIOR CLINICAL STUDY MANAGER to assist in the clinical interview. The patient appears to be suspicious and dismissive. The patient is stating he does not need to answer questions. The patient is unable to contract for safety. PAST MEDICAL HISTORY: Please see history and physical by Dr. Figueroa. PAST PSYCHIATRIC HISTORY: The patient has had 2 previous hospitalizations here at [facility]. The patient is under the care of a psychiatrist and psychologist at his placement. SUBSTANCE ABUSE HISTORY: The patient did not answer this question. No records are available. PSYCHOSOCIAL HISTORY: The patient did not answer questions about occupational history, educational history or jain affiliation. The patient did not answer questions about family relationships; however, the patient did indicate that he has no children and that his brother is his caregiver and is involved in his medical decisions. The patient states no current legal problems. The patient did not answer questions about history of physical abuse. MENTAL STATUS EXAMINATION: The patient appears to be his stated age. The patient's attitude is uncooperative. Eye contact is poor and avoidant. Speech is spontaneous but loud. Mood is irritable. Affect is constricted. Thought process shows to be avoidant with some paranoid ideation. The patient denied any suicidal ideation or homicidal ideation, plan or intention. The patient's behavior is easily agitated. The patient did not participate in the memory assessment. Impulse control is inadequate. Concentration is poor. Sensorium is alert and oriented to self and place. The patient did not participate in the other clinical interview questions. Insight is impaired. Judgment is impaired. DIAGNOSTIC IMPRESSION: AXIS I: 1. Psychotic disorder, not otherwise specified. 2. Dementia with behavioral disturbance. AXIS II: Deferred. AXIS III: Please see history and physical by Dr. Figueroa. TREATMENT PLAN: The patient has been seen by Dr. Young for psychiatric evaluation and for the management of the patient's psychotropic medications. The patient is being started on 12.5 mg of Seroquel at nighttime, manifested by agitation and psychosis. We will provide supportive psychotherapy to include reality orientation, differentiation and integration. We will provide limit setting with both cognitive behavioral redirection as well as de-escalation. We will provide motivational enhancement to encourage the patient to become compliant and stay compliant with all aspects of his care and treatment. We will encourage the patient to be able to demonstrate no anger outbursts as well as emotional and self-regulation prior to his discharge. We will include coping skills and stress management to increase the patient's frustration tolerance. We will provide coping strategies for phase of life issues as well as chronic mental illness. Thank you, Dr. Young for this consult and the opportunity to participate in this patient's care. JOB# [id number] SANJUANITA
--- NOTE | 2018-03-31 18:07 | Progress Notes ---
DATE: 03/31/2018 IDENTIFICATION: A 77-year-old male. SUBJECTIVE: Patient is seen and examined. The patient is admitted at [facility] for aggressive behavior. [facility] The patient does not provide any meaningful history. The patient speaks [place] Citizen only. PHYSICAL EXAMINATION: VITAL SIGNS: Temperature 98.3, pulse 74, respiratory rate is 20, blood pressure 130/80. HEENT: No facial asymmetry. NECK: Supple, no JVD. HEART: Both heart sounds are irregularly irregular. CHEST: Lung equal in expansion, no expiratory wheezing. ABDOMEN: Soft. No guarding, no rigidity. Bowel sounds are present. No palpable mass. EXTREMITIES: No edema. NEUROLOGIC: Alert, awake, follows commands. Decreased power throughout the upper and lower extremities noted. CLINICAL IMPRESSION: 1. Diabetes mellitus. 2. Hypertension. 3. Coronary artery disease. 4. Degenerative joint disease. 5. Seizure disorder. 6. Benign prostatic hypertrophy. 7. Alzheimer dementia. 8. High risk for fall. 9. Osteoporosis. 10. Degenerative joint disease. 11. Psychotic disorder exacerbation. PLAN: 1. Monitor blood sugar and blood pressure. 2. Diabetes management. 3. Statin. 4. Flomax. 5. Rate control. 6. Medical management for medical illness. 7. Fall precautions. 8. General nursing care. 9. Continue other medicine as prescribed. 10. Care plan reviewed and discussed with staff. JOB# [id number]
--- NOTE | 2018-03-31 18:23 | Progress Notes ---
DATE: 03/31/2018 SUBJECTIVE: Staff was spoken to. The patient is interviewed. Mood is noted to be irritable. Affect is constricted. The patient is having difficult time to adjust to the hospital and the patient is reported to have been getting easily agitated at the facility and could not be contained at a lower level of care. We have him on 12.5 mg of the Seroquel at this time and the patient has been able to tolerate. No side effects to the medications are noted. The patient is being closely monitored at this time. ASSESSMENT: The patient is demented and impulsive. PLAN: To continue the patient with the current medications and followup. JOB# [id number]
[2018-04-01] MEDS: INSULIN ASPART SLIDING SCALE 100 UNITS/ML UNIT SUBQ SCH ×2 (06:55→16:30)
[2018-04-01] MEDS: Aspirin 81mg Chewable Tab PO SCH (08:33)
[2018-04-01] MEDS: Multivitamin w/ Minerals Tab PO SCH (08:33)
--- NOTE | 2018-04-01 22:15 | Progress Notes ---
DATE: 04/01/2018 PSYCHIATRIC PROGRESS NOTE SUBJECTIVE: Staff was spoken to. The patient is interviewed. Mood is noted to be irritable. Affect is constricted. The patient is very quiet today. No major behavioral problems are noted. The patient is currently on 12.5 mg of the Seroquel. We are closely monitoring the patient for any of the behavioral concerns. The patient is able to tolerate and the patient could be redirectable this morning. ASSESSMENT: The patient is still psychotic. PLAN: To continue the patient with the supportive therapy and followup. JOB# [id number]
[2018-04-02] MEDS: INSULIN ASPART SLIDING SCALE 100 UNITS/ML UNIT SUBQ SCH (06:39)
[2018-04-02] MEDS: Aspirin 81mg Chewable Tab PO SCH (09:44)
--- NOTE | 2018-04-02 11:05 | Progress Notes ---
DATE: PATIENT'S IDENTIFICATION: A 77-year-old male. SUBJECTIVE: The patient seen and examined. The patient is lying in the bed. The patient has no new complaint. Discussed with nursing staff about their concerns. OBJECTIVE: On exam, VITAL SIGNS: Temperature 97.6, pulse 74, respiratory rate is 18, blood pressure 110/70. Glucoscan is reviewed. HEENT: No facial asymmetry. NECK: Supple, no JVD. HEART: Regular. CHEST: Lung equal in expansion, no expiratory wheezing. ABDOMEN: Soft. No guarding, no rigidity. Bowel sounds are present. No palpable mass. EXTREMITIES: No edema. NEUROLOGIC: Alert, awake, follows commands. CLINICAL IMPRESSION: 1. Diabetes. 2. Hypertension. 3. Coronary artery disease. 4. Seizure disorder. 5. Degenerative joint disease. 6. Alzheimer dementia. 7. Benign prostatic hypertrophy. 8. Osteoporosis. 9. Fall risk. 10. Psychiatric disorder exacerbation. PLAN: 1. Evaluation and management deferred to psychiatrist. 2. Monitor blood sugar and blood pressure. 3. Statin. 4. Oral hypoglycemic agent. 5. Antihypertensive medication. 6. CVA prophylaxis. 7. Seizure precaution medication. 8. General nursing care. 9. Fall precautions. 10. Care plan reviewed and discussed with staff. JOB# [id number]
[2018-04-02] MEDS: Multivitamin w/ Minerals Tab PO SCH (17:01)
--- NOTE | 2018-04-03 01:39 | Progress Notes ---
DATE: 04/02/2018 SUBJECTIVE: Staff was spoken to. The patient is interviewed. Mood is noted to be irritable. Affect is constricted. Insight and judgment are noted to be still impaired. Impulse control is noted to be poor. Coping skills are noted to be poor. The patient's aggression is closely monitored at this time. No side effects to the medications are noted. The patient has been encouraged to verbalize the concerns rather than to act out. Sleep and appetite at this time are noted to be fair. ASSESSMENT: The patient is still impulsive. PLAN: To continue the patient with the supportive therapy and followup. JOB# [id number]
[2018-04-03] MEDS: INSULIN ASPART SLIDING SCALE 100 UNITS/ML UNIT SUBQ SCH ×2 (06:45→16:55)
[2018-04-03] MEDS: Aspirin 81mg Chewable Tab PO SCH (09:09)
[2018-04-03] MEDS: Multivitamin w/ Minerals Tab PO SCH (09:10)
--- NOTE | 2018-04-04 00:48 | Progress Notes ---
DATE: 04/03/2018 SUBJECTIVE: Staff was spoken to. The patient is interviewed. Mood is noted to be irritable. Affect is constricted. The patient is responding to internal stimuli and has been getting easily agitated. The patient has been debilitated and has been getting up and down in the holidays. The patient is very agitated now. Coping skills are noted to be poor. ASSESSMENT: The patient is impulsive and agitated. PLAN: To increase the dose on the Seroquel to 25 mg and follow the patient with the supportive therapy. JOB# [id number]
[2018-04-04] MEDS: Multivitamin w/ Minerals Tab PO SCH (09:36)
[2018-04-04] MEDS: Aspirin 81mg Chewable Tab PO SCH (09:37)
--- NOTE | 2018-04-04 12:08 | Progress Notes ---
DATE: 04/04/2018 SUBJECTIVE: The patient was seen and examined. The patient is lying in the bed. The patient denies any chest pain, shortness of breath, palpitation, dizziness, nausea, vomiting. OBJECTIVE: VITAL SIGNS: Temperature 98.6, pulse 76, respiratory rate 18, and blood pressure 121/60. HEENT: No facial asymmetry. Poor dentition noted. NECK: Supple. No JVD. HEART: Regular. CHEST AND LUNGS: Equal in expansion, expiratory wheezing. ABDOMEN: Soft. No guarding, no rigidity. Bowel sounds are present. No palpable mass. EXTREMITIES: No edema. NEUROLOGIC: Alert and awake, follows command, moving upper and lower extremity. CLINICAL IMPRESSION: 1. Diabetes with low blood sugar. 2. Hypertension. 3. Coronary artery disease. 4. Seizure disorder. 5. Benign prostatic hypertrophy. 6. Dementia. 7. Degenerative joint disease. 8. Psychotic disorder exacerbation. PLAN: 1. Continue to monitor blood sugar, cut down the oral hypoglycemic agent. 2. Monitor blood pressure. 3. Antihypertensive medicine. 4. Seizure medication. 5. Seizure precaution. 6. General nursing care. 7. Fall precaution. 8. Follow lab. 9. We will continue to follow this patient in the hospital. JOB# [id number]
[2018-04-04] MEDS: INSULIN ASPART SLIDING SCALE 100 UNITS/ML UNIT SUBQ SCH (17:39)
--- NOTE | 2018-04-04 18:00 | Progress Notes ---
DATE: IDENTIFICATION: A 75-year-old male. SUBJECTIVE: The patient seen and examined. The patient is lying in the bed. The patient is ambulatory at times. Discussed with nursing staff, no new event noted. The patient denies any chest pain, shortness of breath, palpitation, dizziness, nausea, vomiting, headache, seizure. PHYSICAL EXAMINATION: VITAL SIGNS: Temperature 97.6, pulse 78, respiratory rate 16, and blood pressure 100/80. HEENT: No facial asymmetry. NECK: Supple, no JVD. HEART: Regular. CHEST: Lung equal in expansion, no expiratory wheezing. ABDOMEN: Soft, no guarding or rigidity. Bowel sounds present. No palpable mass. EXTREMITIES: No edema. CLINICAL IMPRESSION: 1. Hypertension. 2. Diabetes. 3. Degenerative joint disease. 4. Psychotic disorder. 5. Seizure disorder. 6. Benign prostatic hypertrophy. 7. Insomnia. PLAN: 1. Psychotic evaluation and management deferred to psychiatrist. 2. Flomax. 3. Seizure medication. 4. Seizure precaution. 5. Metformin and glipizide. 6. Sliding scale insulin. 7. Fall precaution. 8. General nursing care. 9. Lotensin. 10. CVA prophylaxis. 11. Care plan reviewed and discussed with staff. JOB# [id number]
--- NOTE | 2018-04-04 19:59 | Progress Notes ---
DATE: 04/04/2018 PSYCHIATRIC PROGRESS NOTE Staff was spoken to. The patient is interviewed. Mood is noted to be irritable. Affect is constricted. The patient is not showing much of aggressive behavior, but the patient is pacing most of the time on the unit, needs to be redirected. Coping skills at this time are noted to be fair. ASSESSMENT: The patient is stabilizing. PLAN: To continue the patient with current medications and followup. [facility]# [id number]
[2018-04-05] MEDS: INSULIN ASPART SLIDING SCALE 100 UNITS/ML UNIT SUBQ SCH ×2 (06:35→17:14)
[2018-04-05] MEDS: Multivitamin w/ Minerals Tab PO SCH (09:29)
[2018-04-05] MEDS: Aspirin 81mg Chewable Tab PO SCH (09:29)
--- NOTE | 2018-04-05 14:57 | Progress Notes ---
DATE: 04/05/2018 SUBJECTIVE: Staff was spoken to. The patient is interviewed. Mood is noted to be irritable. Affect is constricted. The patient is pacing most of the time on the unit. Insight and judgment at this time are noted to be still impaired. Impulse control is noted to be limited. Coping skills are noted to be limited. The patient has been having difficult time to cope with the stress. The patient is pacing most of the time on the unit. ASSESSMENT: The patient is still anxious. PLAN: To continue the patient with the supportive therapy and followup. JOB# [id number]
--- NOTE | 2018-04-05 23:39 | Progress Notes ---
DATE: 04/05/2018 SUBJECTIVE: The patient seen and examined. The patient is lying in the bed, known. The patient has no new complaint. Discussed with nursing staff, other concerns. PHYSICAL EXAMINATION: VITAL SIGNS: Temperature 97.6, pulse 80, respiratory rate is 18, blood pressure 132/53. HEENT: No facial asymmetry. NECK: Supple, no JVD. HEART: Regular. CHEST AND LUNGS: Equal in expansion. No expiratory wheezing. ABDOMEN: Soft, no guarding, no rigidity. Bowel sounds are present. No palpable mass. EXTREMITIES: No edema. CLINICAL IMPRESSION: 1. Psychotic disorder exacerbation. 2. Benign prostatic hypertrophy. 3. Seizure disorder. 4. Diabetes. 5. Degenerative joint disease. 6. Vitamin D deficiency. 7. Hypertension. 8. Debility. PLAN: 1. Lotensin for hypertension. 2. Monitor blood pressure. 3. Sliding scale insulin. 4. Glucophage. 5. Dilantin. 6. Seizure precaution. 7. Flomax for BPH. 8. Symptoms management. 9. Nutritional support. 10. General nursing care. 11. Care plan reviewed and discussed with staff. JOB# [id number]
[2018-04-06] MEDS: INSULIN ASPART SLIDING SCALE 100 UNITS/ML UNIT SUBQ SCH ×2 (06:30→16:27)
[2018-04-06] MEDS: Multivitamin w/ Minerals Tab PO SCH (09:37)
[2018-04-06] MEDS: Aspirin 81mg Chewable Tab PO SCH (09:37)
[2018-04-07] MEDS: INSULIN ASPART SLIDING SCALE 100 UNITS/ML UNIT SUBQ SCH ×2 (06:36→15:57)
--- NOTE | 2018-04-07 09:28 | Progress Notes ---
DATE: 04/06/2018 PSYCHIATRIC PROGRESS NOTE SUBJECTIVE: Staff was spoken to. The patient is interviewed. Mood is noted to be irritable. Affect is constricted. Insight and judgment at this time are noted to be still impaired. Impulse control is noted to be limited. The patient has been getting frustrated for being in here and he is stating that he needs to go back. Patient has been going back and forth in the wheelchair and the patient needs to be erected. No side effects to the medications are noted at this time. The patient is currently on the Seroquel 25 mg at bedtime and has been able to tolerate it. ASSESSMENT: The patient is still impulsive and paranoid. PLAN: To continue the patient with the supportive therapy and followup. JOB# [id number]
[2018-04-07] MEDS: Multivitamin w/ Minerals Tab PO SCH (09:41)
[2018-04-07] MEDS: Aspirin 81mg Chewable Tab PO SCH (09:41)
--- NOTE | 2018-04-07 19:58 | Progress Notes ---
DATE: 04/07/2018 SUBJECTIVE: Staff was spoken to. The patient is interviewed. Mood is noted to be irritable. Affect is constricted. The patient is pacing on the unit, aggressive behavior seems to be coming down. No side effects to the medications are noted. Sleep and appetite are noted to be improving at this time. ASSESSMENT: The patient's aggression is resolving. PLAN: To continue the patient with the supportive therapy. I encouraged the patient to verbalize the concerns rather than to act out. Follow the patient with supportive therapy. JOB# [id number]
--- NOTE | 2018-04-08 02:33 | Progress Notes ---
DATE: 04/07/2018 SUBJECTIVE: The patient seen and examined. On today's exam, the patient is lying in the bed. No chest pain, shortness of breath, or palpitation. PHYSICAL EXAMINATION: VITAL SIGNS: On exam, temperature 98, pulse 64, respiratory rate 18, blood pressure 130/80. HEENT: No facial asymmetry. Absent teeth noted. NECK: Supple, no JVD. HEART: Regular. CHEST: Lung equal in expansion, no expiratory wheezing. ABDOMEN: Soft, no guarding or rigidity. Bowel sounds present. No palpable mass. EXTREMITIES: No edema. NEUROLOGIC: Alert, awake, follows command. No gross neuro deficit noted. AVAILABLE LABORATORY DATA: Available MAR reviewed. L CLINICAL IMPRESSION: 1. Hypertension. 2. Diabetes. 3. Degenerative joint disease. 4. Seizure disorder. 5. Benign prostatic hypertrophy. 6. Psychotic disorder exacerbation. 7. Insomnia. PLAN: 1. Psychiatric evaluation and management deferred to psychiatrist. 2. Antihypertensive medicine. 3. Monitor blood sugar and blood pressure. 4. Low sodium diet. 5. Seizure medication. 6. Seizure precaution. 7. Follow lab. 8. We will continue to follow this patient during the stay in the hospital. JOB# [id number]
[2018-04-08] MEDS: INSULIN ASPART SLIDING SCALE 100 UNITS/ML UNIT SUBQ SCH ×2 (06:52→17:40)
[2018-04-08] MEDS: Aspirin 81mg Chewable Tab PO SCH (08:54)
[2018-04-08] MEDS: Multivitamin w/ Minerals Tab PO SCH (08:54)
--- NOTE | 2018-04-08 20:55 | Progress Notes ---
DATE: 04/08/2018 SUBJECTIVE: Staff was spoken to. The patient is interviewed. Mood is noted to be anxious. Affect is constricted. The patient is pacing most of the time on the unit. Insight and judgment at this time are noted to be improving. Impulse control seems to be fair. No side effects to the medications are noted. The patient has been able to tolerate the medications. The patient is however confused, the confusion is more towards the end of the day. ASSESSMENT: The patient is still confused and demented and aggression seems to be coming under control. PLAN: To continue the patient with the supportive therapy. We will work with the foster care case manager for possible discharge tomorrow. JOB# [id number]
[2018-04-09] MEDS: INSULIN ASPART SLIDING SCALE 100 UNITS/ML UNIT SUBQ SCH ×2 (06:31→16:30)
[2018-04-09] MEDS: Multivitamin w/ Minerals Tab PO SCH (08:23)
[2018-04-09] MEDS: Aspirin 81mg Chewable Tab PO SCH (08:24)
--- NOTE | 2018-04-09 14:09 | Progress Notes ---
DATE: 04/09/2018 SUBJECTIVE: Staff was spoken to. The patient is interviewed. Mood is noted to be anxious. Affect is appropriate. Not suicidal or homicidal. Insight and judgment are improving. Impulse control seems to be fair. No side effects to the medications are noted. The patient has been able to verbalize the concerns rather than to act out, but he states he does not like other people trying to challenge him. ASSESSMENT: The patient is stabilizing. PLAN: To discharge the patient today for followup on outpatient basis. [facility]# [id number]
--- NOTE | 2018-04-09 19:10 | Progress Notes ---
DATE: IDENTIFICATION: A 77-year-old male. SUBJECTIVE: The patient seen and examined. The patient is going to residential to the [place]. The patient currently denies any chest pain, shortness of breath, palpitation, dizziness, nausea, vomiting. PHYSICAL EXAMINATION: VITAL SIGNS: Temperature 97.3, pulse 89, respiratory rate is 18, blood pressure 121/70. HEENT: No facial asymmetry. NECK: Supple, no JVD. HEART: Regular. CHEST AND LUNGS: Equal in expansion. No expiratory wheezing. ABDOMEN: Soft. No guarding, no rigidity. Bowel sounds are present. No palpable mass. EXTREMITIES: No edema. CLINICAL IMPRESSION: 1. Hypertension. 2. Diabetes mellitus. 3. Seizure disorder. 4. Benign prostatic hypertrophy. 5. Psychotic disorder. 6. Degenerative joint disease. 7. Chronic insomnia. PLAN: 1. Low sodium diet. 2. Diabetic diet. 3. Monitor blood sugar, blood pressure. 4. Seizure medication. 5. Seizure precaution. 6. Chronic disease management. 7. The patient is stable for discharge to lower level of care. 8. Care plan reviewed and discussed with staff. JOB# [id number]
== END 2018-04-09 18:55 | DRG 885 ==
LOC: ER 17:20 → GERO2 18:45
PROVIDERS: ADMIT Psychiatry & Neurology Psychiatry; ATTEND Psychiatry & Neurology Psychiatry
DX: F29 Unspecified psychosis not due to a substance or known physiological condition (principal); F02.81 Dementia in other diseases classified elsewhere, unspecified severity, with behavioral disturbance; I10 Essential (primary) hypertension; E11.9 Type 2 diabetes mellitus without complications; E78.5 Hyperlipidemia, unspecified; M19.90 Unspecified osteoarthritis, unspecified site; G40.909 Epilepsy, unspecified, not intractable, without status epilepticus; M81.0 Age-related osteoporosis without current pathological fracture; I25.10 Atherosclerotic heart disease of native coronary artery without angina pectoris; N40.0 Benign prostatic hyperplasia without lower urinary tract symptoms; G30.9 Alzheimer's disease, unspecified; J44.9 Chronic obstructive pulmonary disease, unspecified; R32 Unspecified urinary incontinence; G47.00 Insomnia, unspecified; F41.9 Anxiety disorder, unspecified; Z79.4 Long term (current) use of insulin; Z91.81 History of falling
CPT/HCPCS: 36415-UA; 80053-TC; 80061-TC; 80185-TC; 80320-TC; 80329-TC; 82948-90; 83036-90; 84443-TC; 85025-TC; 86592-TC; 93005; G0410; J1815; Z7610